=== PATIENT | male | born 1935 | race Caucasian/White ===

== ENCOUNTER 2018-09-17 19:59 | Inpatient (IN) ==
[2018-09-17] MEDS ORDERED: HYDROmorphone 2 MG/ML VIAL IV ONE (20:30)
[2018-09-17] MEDS: ONDANSETRON 4 MG/2 ML VIAL IV PRN ×2 (20:44→23:40)
[2018-09-17] MEDS ORDERED: HYDROcodone/APAP 10/325MG TABLET PO PRN (23:23)
[2018-09-17] MEDS ORDERED: LEVOFLOXACIN 750 MG/150 ML BAG IV ONE (23:23)
[2018-09-17] MEDS ORDERED: PROMETHAZINE 25 MG/ML VIAL IV PRN (23:23)
[2018-09-17] MEDS ORDERED: HYDROcodone/APAP 5/325MG TABLET PO ONE (23:43)
[2018-09-17] MEDS ORDERED: LORazepam 2 MG/ML VIAL IV ONE (23:50)
[2018-09-18 03:41] LABS: Basophils # (Auto) 0 K/mcL (0.0-0.3); Basophils % (Auto) 0 % (0.0-2.0); Eosinophils # (Auto) 0 K/mcL (0.0-0.7); Eosinophils % (Auto) 0 % (0.0-7.0); Granulocytes % (Auto) 95.4 % (38.0-78.0); Lymphocytes # (Auto) 0.5 K/mcL (1.5-4.8); Lymphocytes % (Auto) 3.8 % (15.5-49.0); Mean Cell Volume 87.9 fL (80.0-100.0); Mean Corpuscular HGB Conc 32.6 g/dL (31.0-36.0); Mean Corpuscular Hemoglobin 28.7 pg (26.0-34.0); Monocytes # (Auto) 0.1 K/mcL (0.1-0.9); Monocytes % (Auto) 0.8 % (1.0-12.0); Platelet Count 241 K/mcL (140-440); RBC 4.67 M/mcL (4.50-5.90); Red Cell Distribution Width 14.7 % (11.5-14.5)
[2018-09-18] MEDS ORDERED: HYDROcodone/APAP 5/325MG TABLET PO PRN (03:41)
[2018-09-18] MEDS ORDERED: methylPREDNISolone SOD SUCC 125 MG/2 ML VIAL IV ONE (03:43)
[2018-09-18] MEDS ORDERED: 0.9 % SODIUM CHLORIDE 1,000 ML IV ONE (03:44)
[2018-09-18 03:56] LABS: ALT/SGPT 16 U/l (0-40); Albumin 4.4 gm/dL (3.2-5.2); Albumin/Globulin Ratio 1.8 (1.0-2.3); Alkaline Phosphatase 80 U/L (39-117); Blood Urea Nitrogen 26 mg/dl (8-23); C-Reactive Protein < 0.3 mg/dl (0.0-0.8)
--- NOTE | 2018-09-18 05:40 | Emergency Department Note ---
General Adult HPI - General Chief complaint: Back Pain/Injury Stated complaint: Back Pain Time Seen by Provider: 09/17/18 20:10 Source: patient Mode of arrival: wheelchair Limitations: no limitations - History of Present Illness HPI Narrative: The patient is an 83-year-old male who presents today after having a minimally invasive spinal decompression performed by Dr. Arevalo. Reportedly after the procedure he woke up and had intense left leg pain. This has progressed since the surgery. He went home and tried to take his pain medication but threw it up. Was unable to take 2 of his hydrocodone 7.5 around 6:00 but it wasn't controlling his pain which prompted him to come in. He is reporting that the left leg is having severe pain that feels like spasms. States that it greater than 10 out of 10 pain. He denies any loss of bowel or bladder function. - Related Data Home Medications Medication Instructions Recorded Confirmed multivitamin capsule 1 tab-cap PO QDAY 11/02/15 01/27/18 Naproxen (Pp) [Aleve (Pp)] 220 mg PO QDAY 03/05/16 01/27/18 Previous Rx's Medication Instructions Recorded aspirin 81 mg tablet,delayed 81 mg PO QDAY #90 tab 12/06/15 release alprazolam 2 mg tablet 2 mg PO ONCE #2 tab 11/05/17 atorvastatin 40 mg tablet 40 mg PO HS #90 tab 12/07/17 ramipril 5 mg capsule 5 mg PO QDAY #90 cap 18 nortriptyline 10 mg capsule 10 mg PO QHS #90 cap 01/18/18 acebutolol 200 mg capsule 200 mg PO QDAY 90 Days #90 cap 01/27/18 nitroglycerin 0.4 mg sublingual 0.4 mg SUBLINGUAL Q5-15MIN PRN #30 01/27/18 tablet tab pantoprazole 40 mg tablet,delayed 40 mg PO QAM #90 tab 01/27/18 release Allergies Allergy/AdvReac Type Severity Reaction Status Date / Time Sulfa (Sulfonamide Allergy Intermediate Hives Verified 01/27/18 09:31 Antibiotics) niacin Allergy Mild Flushing Verified 01/27/18 09:31 [From Niaspan Extended-Release] latex Allergy Unknown Unknown Verified 01/27/18 09:31 sulfasalazine AdvReac Mild Dizziness Verified 01/27/18 09:31 Review of Systems All systems ED: reviewed and negative except as stated. Past Medical History - Past Medical History Attestation: Yes: The following information was validated with the patient. Medical history: Reports: coronary artery disease, GERD, hyperlipidemia, hypertension, other (rinary tract infection. BPH with urinary obstruction. Iron deficiency anemia due to chronic blood loss.) Surgical history ED: Reports: angioplasty/stent, cataract, other (photo vaporization of prostate. Rotator cuff repair.lumbar back surgery.closed fracture of sternum. Closed fracture of tib-fib.) - Social History smoking status: Never smoker Physical Exam Limitations: no limitations General appearance: alert, in distress (appears uncomfortable) Head: atraumatic Eye: Present: normal appearance ENT: normal exam Neck: Present: normal inspection Chest: Present: normal inspection Respiratory: Present: normal lung sounds bilaterally Cardiovascular: Present: regular rate, normal rhythm, systolic murmur (2/6 left sternal border) Abdominal: Present: soft, normal bowel sounds Extremities: Present: normal inspection Foot/toe: Present: other (1+ pedal pulses bilaterally, patient able to flex and extend his left foot, straight leg test to aprox 80 degrees before describing back pain, can lift left leg off of table. has frequent short "shooting spasms " where the patient seems to have a shock like sensation upon movement of the left leg. ) Neurovascular/Tendon: Present: normal capillary refill Back: Present: normal inspection Neurological: Present: alert, oriented X3 Psychiatric: Present: normal affect, normal mood Skin: Present: warm, dry Course Course Narrative: Anticipate the surgeon who operated and he didn't have any suggestions and will be causing this issue. Proceeded with a CT lumbar spine to evaluate for abscess formation or a structural issue which could contribute to the acute severe left flank pain. CT scan came back showing multiple small foci of air in the subcutaneous tissues, spinal canal and surrounding soft tissue. No fracture or subluxation. Mildly hyperdense material in the renal pelvises bilaterally that could represent excreted contrast material from another procedure. This could represent blood products. I spoke to the surgeon who did the procedure today who felt that these were expected findings after discussion of procedure he had., Who will was not impressed by these findings. Recommended an MRI of the lumbar spine. This was ordered. While this workup is happening the patient on arrival came in with an oxygen level of 88-89% on room air. He is not coughing. Was put on 4 L nasal cannula to maintain oxygen level greater than 90. I did treat his pain with dose of Dilaudid. - Reevaluation(s) Reevaluation #1: Patient reevaluated after MRI of his lumbar spine. This returned showing chronic degenerative changes including "degenerative spondyloarthropathy, multilevel degenerative disc disease and multilevel central canal stenosis. There are annular bulges at multiple levels. Cannot exclude a small left foraminal L2-L3 disc extrusion." Patient did have some improvement of his pain with [place] 10 mg and this was repeated as it has been over 3 hours. He is starting to get more of a spasm type pains again in the left leg. Reevaluation #2: Chest x-ray ordered which I reviewed. Allergies: He could have an infiltrate in the right middle lobe. This was sent to the [facility] radiologist who felt that it was negative for any cardiopulmonary process. Blood work was obtained which did show an elevated white blood cell count of 13.4 the patient has a temperature of 100.1 Fahrenheit with Tylenol on board. Reevaluation #3: I did speak to the hospitalist who graciously agreed to accept this patient for his persistent hypoxia. He has received a dose of Levaquin here. Requiring 4 L of oxygen via nasal cannula. Vital Signs Temperature 96.9 F L 09/17/18 19:59 Pulse Rate 93 H 09/17/18 19:59 Respiratory Rate 18 09/17/18 19:59 Blood Pressure 154/124 09/17/18 19:59 Pulse Oximetry (%) 95 09/17/18 19:59 Temperature 99.9 F H 09/18/18 05:01 Pulse Rate 96 H 09/18/18 05:01 Respiratory Rate 16 09/18/18 05:01 Blood Pressure 99/68 09/18/18 05:01 Pulse Oximetry (%) 93 09/18/18 05:01 Medical Decision Making - [facility] Narrative Medical decision making narrative: Unfortunate gentleman with a postsurgical complication of unknown mechanism. He did receive 60 mg of IV Solu-Medrol to decrease any inflammation at the procedure site which could be causing some irritation or pressure on the nerve root exiting at that level. He does have pulses in his lower extremities. Hypoxic with a negative chest x-ray by on the verge of tachycardia and a fever. He did receive a dose of Levaquin for empiric treatment of community-acquired pneumonia. He'll be transferred to the hospitalist for further management and workup - Lab Data Lab results reviewed: Yes I reviewed the patient's lab results. Result diagrams: 09/18/18 01:00 09/18/18 01:00 Lab Results 09/17/18 09/18/18 09/18/18 Range/Units 23:45 01:00 01:00 WBC 13.4 H (4.5-11.0) K/mcL RBC 4.67 (4.50-5.90) M/mcL Hgb 13.4 L (13.5-16.5) g/dL Hct 41.1 (41.0-55.0) % POC Hct 41.0 (41.0-55.0) % MCV 87.9 (80.0-100.0) fL MCH 28.7 (26.0-34.0) pg MCHC 32.6 (31.0-36.0) g/dL RDW 14.7 H (11.5-14.5) % Plt Count 241 (140-440) K/mcL MPV 9.6 (7.4-10.4) fL Gran % 95.4 H (38.0-78.0) % Lymph % (Auto) 3.8 L (15.5-49.0) % Jerome % (Auto) 0.8 L (1.0-12.0) % Eos % (Auto) 0 (0.0-7.0) % Baso % (Auto) 0 (0.0-2.0) % Gran # 12.8 H (1.8-8.0) K/mcL Lymph # (Auto) 0.5 L (1.5-4.8) K/mcL Jerome # (Auto) 0.1 (0.1-0.9) K/mcL Eos # (Auto) 0 (0.0-0.7) K/mcL Baso # (Auto) 0 (0.0-0.3) K/mcL VBG Lactic Acid POC Sodium 140 (133-145) mmol/L Sodium 140 (133-145) mmol/L POC Potassium 4.3 (3.3-5.1) mmol/L Potassium 4.3 (3.3-5.1) mmol/L POC Chloride 100 (96-108) mmol/L Chloride 101 (96-108) mmol/L Carbon Dioxide 26 (22-30) mmol/L POC Total CO2 26 (22-30) mmol/L Anion Gap 13.0 (8-16) POC BUN 28 H (8-23) mg/dl BUN 26 H (8-23) mg/dl Creatinine 0.9 (0.7-1.2) mg/dl POC Creatinine 1.0 (0.7-1.2) mg/dl GFR Calculation 80 Glucose 148 H (70-105) mg/dL POC Glucose 159 H (70-105) mg/dL Calcium 9.0 (8.6-10.4) mg/dl POC WB Ioniz Calcium 1.16 (1.16-1.32) mmol/L Total Bilirubin 0.4 (0.0-1.0) mg/dL AST 21 (0-37) U/l ALT 16 (0-40) U/l Alkaline Phosphatase 80 (39-117) U/L C-Reactive Protein < 0.3 (0.0-0.8) mg/dl Total Protein 6.9 (5.9-8.4) gm/dL Albumin 4.4 (3.2-5.2) gm/dL Globulin 2.5 (2.2-3.7) gm/dL Albumin/Globulin Ratio 1.8 (1.0-2.3) 09/18/18 Range/Units 01:00 WBC (4.5-11.0) K/mcL RBC (4.50-5.90) M/mcL Hgb (13.5-16.5) g/dL Hct (41.0-55.0) % POC Hct (41.0-55.0) % MCV (80.0-100.0) fL MCH (26.0-34.0) pg MCHC (31.0-36.0) g/dL RDW (11.5-14.5) % Plt Count (140-440) K/mcL MPV (7.4-10.4) fL Gran % (38.0-78.0) % Lymph % (Auto) (15.5-49.0) % Jerome % (Auto) (1.0-12.0) % Eos % (Auto) (0.0-7.0) % Baso % (Auto) (0.0-2.0) % Gran # (1.8-8.0) K/mcL Lymph # (Auto) (1.5-4.8) K/mcL Jerome # (Auto) (0.1-0.9) K/mcL Eos # (Auto) (0.0-0.7) K/mcL Baso # (Auto) (0.0-0.3) K/mcL VBG Lactic Acid Cancelled POC Sodium (133-145) mmol/L Sodium (133-145) mmol/L POC Potassium (3.3-5.1) mmol/L Potassium (3.3-5.1) mmol/L POC Chloride (96-108) mmol/L Chloride (96-108) mmol/L Carbon Dioxide (22-30) mmol/L POC Total CO2 (22-30) mmol/L Anion Gap (8-16) POC BUN (8-23) mg/dl BUN (8-23) mg/dl Creatinine (0.7-1.2) mg/dl POC Creatinine (0.7-1.2) mg/dl GFR Calculation Glucose (70-105) mg/dL POC Glucose (70-105) mg/dL Calcium (8.6-10.4) mg/dl POC WB Ioniz Calcium (1.16-1.32) mmol/L Total Bilirubin (0.0-1.0) mg/dL AST (0-37) U/l ALT (0-40) U/l Alkaline Phosphatase (39-117) U/L C-Reactive Protein (0.0-0.8) mg/dl Total Protein (5.9-8.4) gm/dL Albumin (3.2-5.2) gm/dL Globulin (2.2-3.7) gm/dL Albumin/Globulin Ratio (1.0-2.3) Disposition Pt seen by [facility]/PA only: No Clinical Impression: Hypoxia, Post surgical complication Disposition: Xfer As Inpt ([facility]) Referrals: Ricardo Ochoa MD [Primary Care Provider] -
[2018-09-18] MEDS ORDERED: oxyCODONE HCL 5 MG TABLET PO PRN (07:06)
[2018-09-18] MEDS ORDERED: NALOXONE HCL 0.4 MG/ML VIAL IV PRN (07:06)
[2018-09-18] MEDS ORDERED: ALBUTEROL SULFATE 2.5 MG/3 ML NEBULIZER NEB PRN (07:06)
[2018-09-18] MEDS ORDERED: ONDANSETRON 4 MG/2 ML VIAL IV PRN (07:06)
--- NOTE | 2018-09-18 07:39 | Internal Med History&Physical ---
Medical - H&P: HPI Patient information: Note initiated : 09/18/18 at 7:30 am Service Date, if different from initiated Date: [] Patient: Ricardo Romano a 83 y/o M admitted on 09/18/18 for Back Pain. Chief Complaint: [] History of present illness: Mr. Romano is a 83 year old M wit h/o spinal stenosis, chr back pain, presents to the ER last night for evaluation fo worsening pain in the left leg. The patient notes that he has had chr pain in the lower back, with pain radiating down both legs, right > left, he has some hyperaesthesia in the left leg too, which has been bothering him for the last 3 months? the patient notes that he has been seen by Dr Ruvalcaba and then sent to the pain clinic, advised injections, which he took for 3 months, with no major relief, eventual decided to go for spinal procedure, done by Dr Fontaine yesterday. The patient notes after the procedure the pain in the right leg is much better, but the pain in the left leg got significantly worse, pain is severe, making it difficult for the patient to ambulate, patient rates the pain 10/10, sharp, waxing and waning in intensity, radiates down the leg from the hip to the lateral ankle. The patient notes that touching the skin around the ankle region also causes significant pain. He denies any other acute complaints, no fever,chills, has chr cough, no headaches, no nausea/vomiting or bowel bladder complaints. Given his inability to ambulate and significantly worsening pain, he was brought to the ER for further evaluation. He underwent a CT of the lumbar spine which showed significant gas around the spinal cord, and paraspinal muscles, which according to the neurosurgeon and dr Fontaine is related to the procedure. Dr Fontaine noted that the pain is not due to the procedure he did? ( as per ER provider). NO surgican management needed. MRI shows severe degeneration, possible spinal root compression on left side l2-3, The patient also had hypoxia and low grade temp in the ER, midly elevated wbc count, he does not use oxygen at home and was needing oxygen after the use of opiate pain medications. Given concern for possible pna, intractable pain, and increased oxygen needs patient is being admitted to the hospital for further management. 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) History of endoscopy (Chronic 01/08/16) Iron deficiency anemia due to chronic blood loss (Resolved) Essential hypertension (Chronic) Dyslipidemia (Chronic) Coronary atherosclerosis of [place] coronary artery (Chronic 10/17/13) History of colonic polyps (Chronic) Chronic ischemic heart disease (Chronic) Benign localized prostatic hyperplasia without lower urinary tract symptoms ( LUTS) (Chronic) 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) Closed fracture of sternum (Resolved) Closed fracture of tibia and fibula (Resolved) Hypotension (Resolved 09/04/14) Rib contusion (Resolved) Surgical history: Past Surgical History (Last Updated 01/27/18 @ 09:41 by Ricardo Ochoa MD) History of esophagogastroduodenoscopy (Chronic 12/15/15) History of coronary artery stent placement (Chronic) Hx of repair of rotator cuff (Chronic) Hx of lumbosacral spine surgery (Chronic) History of photovaporization of prostate (Acute) History of colonoscopy (Chronic 12/26/15) Hx of cataract surgery (Resolved) Previous back surgery (Resolved) Family history: reviewed and not pertinent Medical - H&P: Meds Home Medications Medication Instructions Recorded Confirmed Type multivitamin capsule 1 tab-cap PO QDAY 11/02/15 09/18/18 History aspirin 81 mg tablet,delayed 81 mg PO QDAY #90 tab 12/06/15 09/18/18 Rx release Naproxen (Pp) [Aleve (Pp)] 220 mg PO QDAY 03/05/16 09/18/18 History alprazolam 2 mg tablet 2 mg PO ONCE #2 tab 11/05/17 09/18/18 Rx atorvastatin 40 mg tablet 40 mg PO HS #90 tab 12/07/17 09/18/18 Rx nortriptyline 10 mg capsule 10 mg PO QHS #90 cap 01/18/18 09/18/18 Rx acebutolol 200 mg capsule 200 mg PO QDAY 90 Days #90 cap 01/27/18 09/18/18 Rx nitroglycerin 0.4 mg sublingual 0.4 mg SUBLINGUAL Q5-15MIN PRN #30 01/27/18 Rx tablet tab pantoprazole 40 mg tablet,delayed 40 mg PO QAM #90 tab 01/27/18 09/18/18 Rx release Ramipril [Altace] 5 mg PO HS 09/18/18 09/18/18 History Allergies Allergy/AdvReac Type Severity Reaction Status Date / Time latex Allergy Intermediate Difficulty Verified 09/18/18 07:32 Breathing Sulfa (Sulfonamide Allergy Intermediate Hives Verified 09/18/18 06:23 Antibiotics) niacin Allergy Mild Flushing Verified 09/18/18 06:23 [From Niaspan Extended-Release] sulfasalazine AdvReac Mild Dizziness Verified 09/18/18 07:32 Medical - H&P: Exam - Constitutional Vitals: Temp Pulse Resp BP Pulse Ox 99.9 F H 96 H 16 99/68 92 09/18/18 05:01 09/18/18 05:01 09/18/18 05:01 09/18/18 05:01 09/18/18 06:47 Exam: GENERAL: The patient is a well-developed, well-nourished in no apparent distress. Is alert and oriented x3. VITAL SIGNS: Reviewed and as noted elsewhere. HEENT: Head is normocephalic and atraumatic. Extraocular muscles are intact. Pupils are equal, round, and reactive to light. Nares appeared normal. Mouth appears any without lesions. Mucous membranes are moist. NECK: Normal to inspection, Supple, No lymphadenopathy or thyromegaly. LUNGS: Air entry equal on both sides, no wheezing, crackles or rhonchi noted. No accessory muscles of respiration HEART: Regular rate and rhythm normal, S1 and S2 heard, no Gallop, S3 or Rub Noted, No Gross murmur heard. ABDOMEN: Soft, nontender, and nondistended. Positive bowel sounds. No hepatosplenomegaly was noted. EXTREMITIES: No cyanosis, clubbing, rash, lesions or edema. very mild swelling of the left foot, good pulses DP PT bilaterally, warm to touch. NEUROLOGIC: Cranial nerves II through XII are grossly intact. Motor and Sensory System Grossly Intact, hyperasthesia in the left ankle regin, around distribution of L3-4 nerve. no neurolgoical deficit noted. PSYCHIATRIC: Normal affect, Normal Mood. Appropriate Behavior. SKIN: No ulceration or wounds noted, No jaundice, No rash noted. Medical - H&P: Reslt - Labs CBC & Chem 7: 09/18/18 01:00 09/18/18 01:00 Labs: Short CBC 09/18/18 Range/Units 01:00 WBC 13.4 H (4.5-11.0) K/mcL Hgb 13.4 L (13.5-16.5) g/dL Hct 41.1 (41.0-55.0) % Plt Count 241 (140-440) K/mcL BMP 09/18/18 01:00 Sodium 140 Potassium 4.3 Chloride 101 Carbon Dioxide 26 BUN 26 H Creatinine 0.9 Glucose 148 H Calcium 9.0 Cardiac Enzymes 09/18/18 Range/Units 01:00 Total Creatine Kinase 105 (24-195) IU/L Liver Function 09/18/18 Range/Units 01:00 Total Bilirubin 0.4 (0.0-1.0) mg/dL AST 21 (0-37) U/l ALT 16 (0-40) U/l Alkaline Phosphatase 80 (39-117) U/L Albumin 4.4 (3.2-5.2) gm/dL Medical - H&P: A/P - Narrative A/P Narrative: A/P Acute hypoxic respiratory failure- due to use of opiates for pain meds, keep osat > 90, supplemental oxygen Possible pna- given elevated wbc count, hypoxia, its possble he may have developed a mild aspiration pneumonitis, periprocedure, levofloxacin for now, Left leg pain- Due to Recent procedure, likely some direct trauma to the nerve, will review case with spine surgery if possible, have them review the images, the L2,3 nerve compression seen on MRI could also be causing this. PO pain mes , tylenol and toradol for now. check esr, crp, kenneth screen, c3, c4, vit b12 to r/ o other causes of neuropathy. CAD- continue home cardiac meds DVT hep sq Diet regular Full code. Social History - Social History leisure activities: hunting, fishing, other - Exercise physical activity: walking - Tobacco smoking status: Never smoker - Alcohol alcohol intake frequency: does not drink - Substance use substance use type: does not use
[2018-09-18] MEDS: LACTATED RINGERS 1,000 ML IV SCH ×2 (07:52→21:14)
[2018-09-18] MEDS: KETOROLAC 30 MG/ML VIAL IV PRN ×2 (07:53→17:06)
[2018-09-18] MEDS: ACETAMINOPHEN 325 MG TABLET PO SCH ×3 (07:54→19:19)
[2018-09-18 08:21] LABS: ALT/SGPT 15 U/l (0-40); Albumin 3.7 gm/dL (3.2-5.2); Albumin/Globulin Ratio 1.3 (1.0-2.3); Alkaline Phosphatase 68 U/L (39-117); Bilirubin,Direct < 0.2 mg/dL (0.0-0.3); Blood Urea Nitrogen 32 mg/dl (8-23); C-Reactive Protein 0.3 mg/dl (0.0-0.8); Gamma Glutamyl Transpeptidase 14 U/L (8-61); Uric Acid 4.5 mg/dL (2.5-8.0)
[2018-09-18 08:22] LABS: Complement C3 121.2 mg/dl (90-180)
[2018-09-18 08:28] LABS: Procalcitonin < 0.05 ng/mL (<0.10)
[2018-09-18 08:33] LABS: Vitamin B12 366.5 pg/ml (232-1245)
[2018-09-18 08:42] LABS: Erythrocyte Sedimentation Rate 10 mm/hr (0-15)
[2018-09-18 08:45] LABS: Basophils # (Auto) 0 K/mcL (0.0-0.3); Basophils % (Auto) 0 % (0.0-2.0); Eosinophils # (Auto) 0 K/mcL (0.0-0.7); Eosinophils % (Auto) 0 % (0.0-7.0); Granulocytes % (Auto) 95.1 % (38.0-78.0); Lymphocytes # (Auto) 0.6 K/mcL (1.5-4.8); Lymphocytes % (Auto) 3.5 % (15.5-49.0); Mean Cell Volume 87.5 fL (80.0-100.0); Mean Corpuscular HGB Conc 33.2 g/dL (31.0-36.0); Monocytes # (Auto) 0.2 K/mcL (0.1-0.9); Monocytes % (Auto) 1.4 % (1.0-12.0); Platelet Count 219 K/mcL (140-440); RBC 4.25 M/mcL (4.50-5.90); Red Cell Distribution Width 14.8 % (11.5-14.5)
--- NOTE | 2018-09-18 09:20 | Cat Scan Report ---
CLINICAL INFORMATION: Worsening low back pain radiating to the left leg, status post minimally invasive disc decompression at L3-4 done earlier today. COMPARISON: Lumbar MRI on 11/05/17. TECHNIQUE: The spine was imaged without contrast from T10-11 to the lower sacrum. Sagittal and coronal reformats were created. Radiation exposure was limited using dose reduction technology. FINDINGS: There are numerous bubbles of air in the soft tissues in the posterior aspect of the spine from T10-11 at L5-S1. Much of the air is in the fascial planes between the paraspinal musculature. Some of their is also in the epidural space starting from T10-11 to L5-S1. No intradural gas is present. There is no evidence of a paraspinal hematoma or abscess. There are advanced degenerative changes in the spine. At L5-S1 the disc is severely narrowed and degenerated. There is an ossified midline herniated disc fragment. This is not causing compression of the thecal sac. This is unchanged from the prior MRI. At L4-5 the disc spaces moderate to severely narrowed and degenerated. There is a large bulge and arthritis in the facets resulting in moderate spinal canal stenosis and moderate stenosis of both neural foramina. At L3-4 disc is mildly narrowed. There is a medium-sized broad-based bulge and arthritis in the facets. There is also ossification of the ligamentum flavum. This is causing moderately severe spinal canal stenosis. There is severe stenosis the right moderate stenosis left side foramina. L2-3 disc is mildly narrowed and there is a medium-sized posterior bulge. Severe arthritis is present in the facets. There is hypertrophy and ossification of the ligamentum flavum. This is causing severe spinal canal stenosis. There is moderately severe stenosis of both neural foramina. At L1-2 small posterior bulge and moderate arthritis in the facets causing mild spinal canal stenosis. There is partial opacification of the collecting systems in both kidneys as well as urinary bladder. Did the patient received intravenous contrast earlier today? There is a low-attenuation solid structure posteriorly in the bladder which measures approximately 3 x 4 cm. Much of the bladder and the mass are outside of the field of view. IMPRESSION: Severe spinal canal stenosis at L2-3 with moderately severe central canal stenosis at L3-4 and moderate central canal stenosis at L4-5 due to bulging discs and arthritis. Similar findings were seen on the prior lumbar MRI in 2017. Air in the epidural space throughout the lumbar spine following the preceding surgical procedure No evidence of paraspinal hematoma or abscess Mass or organized hematoma posteriorly in the midline of the bladder. Further evaluation is recommended. Interpreted and Authenticated by: Negro Russell 09/18/18
--- NOTE | 2018-09-18 09:27 | XRay Report ---
HISTORY: Hypoxia FINDINGS: The lungs are clear. The heart, mediastinum, joie and pleura are normal. IMPRESSION: Normal chest. Interpreted and Authenticated by: Negro Russell 09/18/18
[2018-09-18] MEDS: HEPARIN 5,000 UNIT/ML VIAL SQ SCH ×2 (09:47→21:20)
[2018-09-18] MEDS: LIDOCAINE 5% OINT TUBE 35GM TOPICAL PRN ×2 (12:00→21:21)
[2018-09-18] MEDS: PANTOPRAZOLE 40 MG TABLET PO SCH (13:24)
[2018-09-18] MEDS: PREGABALIN 150 MG CAPSULE PO SCH ×2 (14:05→21:21)
[2018-09-18] MEDS: LEVOFLOXACIN 750 MG/150 ML BAG IV SCH (14:07)
[2018-09-18] MEDS: 0.9 % SODIUM CHLORIDE 10 ML SYRINGE IV SCH ×2 (14:08→21:21)
[2018-09-18] MEDS ORDERED: PREGABALIN 75 MG CAPSULE PO SCH (15:00)
[2018-09-18] MEDS ORDERED: ACETAMINOPHEN 500 MG TABLET PO ONE (19:24)
[2018-09-18] MEDS ORDERED: LISINOPRIL 10 MG TABLET PO SCH (21:00)
[2018-09-18] MEDS ORDERED: ATORVASTATIN 20 MG TABLET PO SCH (21:00)
[2018-09-18] MEDS ORDERED: NORTRIPTYLINE 10 MG CAPSULE PO SCH (21:00)
[2018-09-19] MEDS: ACETAMINOPHEN 325 MG TABLET PO SCH ×3 (00:59→13:05)
[2018-09-19] MEDS ORDERED: ACETAMINOPHEN 500 MG TABLET PO ONE ×3 (01:04→12:56)
[2018-09-19] MEDS: 0.9 % SODIUM CHLORIDE 10 ML SYRINGE IV SCH (04:55)
[2018-09-19] MEDS: PANTOPRAZOLE 40 MG TABLET PO SCH (07:22)
[2018-09-19] MEDS: LACTATED RINGERS 1,000 ML IV SCH (07:27)
[2018-09-19] MEDS ORDERED: PANTOPRAZOLE 40 MG TABLET PO SCH (07:30)
[2018-09-19] MEDS ORDERED: MULTIVIT,THER IRON,CA,FA & MIN 1 TABLET PO SCH (09:00)
[2018-09-19] MEDS ORDERED: ASPIRIN 81 MG TAB.CHEW PO SCH (09:00)
[2018-09-19] MEDS: LEVOFLOXACIN 750 MG/150 ML BAG IV SCH (10:29)
[2018-09-19] MEDS: PREGABALIN 150 MG CAPSULE PO SCH (10:30)
[2018-09-19] MEDS: HEPARIN 5,000 UNIT/ML VIAL SQ SCH (10:31)
--- NOTE | 2018-09-19 12:09 | Discharge Summary ---
Medical - DS: Prov Patient information: Note initiated : 09/19/18 at 12:05 pm Service Date, if different from initiated Date: [] Patient: Ricardo Romano 83 y/o M admitted on 09/18/18 for Back Pain. Chief Complaint: [] Date of admission: 09/18/18 06:59 Discharge date: 09/19/18 Primary care physician: Ricardo Ochoa Consults: 09/18/18 Consult to Physician [CONS] Stat Comment: Consulting Provider: Constance Fermin Reason For Exam: Physician to Consult Discharging clinician: Constance Fermin Medical - DS: Meds - Discharge Medications Prescriptions: Levofloxacin [Levaquin] 500 mg PO DAILY #3 tab Active and Home Medications: Home Medications multivitamin capsule 1 tab-cap PO QDAY 11/02/15 [History Confirmed 09/18/18 Last Taken 09/16/18] aspirin 81 mg tablet,delayed release 81 mg PO QDAY #90 tab 12/06/15 [Rx Confirmed 09/18/18 Last Taken 09/05/18] Naproxen (Pp) [Aleve (Pp)] 220 mg PO QDAY 03/05/16 [History Confirmed 09/18/18 Last Taken 09/16/18] alprazolam 2 mg tablet 2 mg PO ONCE #2 tab 11/05/17 [Rx Confirmed 09/18/18 Last Taken 09/16/18 21:00] atorvastatin 40 mg tablet 40 mg PO HS #90 tab 12/07/17 [Rx Confirmed 09/18/18 Last Taken 09/17/18] nortriptyline 10 mg capsule 10 mg PO QHS #90 cap 01/18/18 [Rx Confirmed Last Taken 09/15/18 21:00] acebutolol 200 mg capsule 200 mg PO QDAY 90 Days #90 cap 01/27/18 [Rx Confirmed 09/18/18 Last Taken 09/16/18 17:00] nitroglycerin 0.4 mg sublingual tablet 0.4 mg SUBLINGUAL Q5-15MIN PRN #30 tab [Rx Confirmed 09/18/18 Last Taken 08/30/12] pantoprazole 40 mg tablet,delayed release 40 mg PO QAM #90 tab 01/27/18 [Rx Confirmed 09/18/18 Last Taken 09/14/18 21:00] Ramipril [Altace] 5 mg PO HS 09/18/18 [History Confirmed 09/18/18 Last Taken 17:00] Medical - DS: Hosp Hospital course: Mr. Romano is a 83 year old M wit h/o spinal stenosis, chr back pain, presents to the ER last night for evaluation fo worsening pain in the left leg. The patient notes that he has had chr pain in the lower back, with pain radiating down both legs, right > left, he has some hyperaesthesia in the left leg too, which has been bothering him for the last 3 months? the patient notes that he has been seen by Dr Ruvalcaba and then sent to the pain clinic, advised injections, which he took for 3 months, with no major relief, eventual decided to go for spinal procedure, done by Dr Fontaine yesterday. The patient notes after the procedure the pain in the right leg is much better, but the pain in the left leg got significantly worse, pain is severe, making it difficult for the patient to ambulate, patient rates the pain 10/10, sharp, waxing and waning in intensity, radiates down the leg from the hip to the lateral ankle. The patient notes that touching the skin around the ankle region also causes significant pain. He denies any other acute complaints, no fever,chills, has chr cough, no headaches, no nausea/vomiting or bowel bladder complaints. Given his inability to ambulate and significantly worsening pain, he was brought to the ER for further evaluation. He underwent a CT of the lumbar spine which showed significant gas around the spinal cord, and paraspinal muscles, which according to the neurosurgeon and dr Fontaine is related to the procedure. Dr Fontaine noted that the pain is not due to the procedure he did? ( as per ER provider). NO surgican management needed. MRI shows severe degeneration, possible spinal root compression on left side l2-3, The patient also had hypoxia and low grade temp in the ER, midly elevated wbc count, he does not use oxygen at home and was needing oxygen after the use of opiate pain medications. Given concern for possible pna, intractable pain, and increased oxygen needs patient is being admitted to the hospital for further management. The patient was seen by Dr Fontaine, Dr Ruvalcaba, they reviewed the plan of care with the patient, no change in management at this time, they reviewed the mri findings, no operative interventino. Patient reports significant improvement in the pain, doing much better, He is off oxygen, given some concern for possible infection, will treat with oral levofloxacin for total of 5 days, 3 more days after discharge. The rest of the stay in the hospital was unremarkable, no change in chr home medication list. Discharge diagnosis: left leg pain - Time Spent with Patient Total time spent providing and/or coordinating discharge services: Less than 30 minutes Medical - DS: Exam - Constitutional Vitals: Vital Signs Temp Pulse Resp BP Pulse Ox 09/19/18 07:49 20 94 09/19/18 07:08 97.5 F 20 158/88 94 09/19/18 04:40 93 09/19/18 04:00 98.8 F 79 20 139/84 93 09/18/18 23:30 98.6 F 83 20 137/77 93 09/18/18 18:15 98.8 F 88 20 139/79 92 09/18/18 15:55 99.1 F H 20 112/69 92 Intake and Output 09/18/18 09/19/18 09/19/18 21:59 05:59 13:59 Intake Total 1900 / 1900 0 / 0 858 / 858 Output Total 725 / 725 750 / 750 1250 / 1250 Balance 1175 / 1175 -750 / -750 -392 / -392 Intake: IV 1150 / 1150 858 / 858 Lactated Ringers 1,000 ml @ 84 1000 / 1000 858 / 858 mls/hr IV .[id number] ON LICENSE OF [facility] Rx#: [id number] Oral 750 / 750 0 / 0 Output: Void Amount 725 / 725 750 / 750 1250 / 1250 # of times incontinent of urine 0 / 0 Other: Meal Dinner Percent of Meal Consumed 50% Feeding Ability Independent Urine Appearance Clear Clear Clear Urine Color Bright Yellow Pale Pale Urine Odor Normal Normal # Voids 1 Weight 183 lb Additional comments: Constitutional; Afebrile, cooperative, alert, not in distress. Eyes- No icterus, , No periorbital swelling Ears- Ext ear normal, hearing normal to conversation. Neck- Midline trachea, supple Respiratory system: Air Entry equal on both sides, No crackles or wheezing, no rhonchi. CVS- Rate rhythm regular, S1,S2 heard, no gallop, no rub. Abdomen- Soft nontender abdomen, no organomegaly, no tenderness, no guarding or rigidity, [employer]ER- AOOx3, moving all extremities, no gross focal deficit noted. Medical - DS: A/P - Patient/Caregiver Discharge Instructions Activity: increase activity as tolerated Diet: Regular Diet Additional Instructions: Take levofloxacin for 3 more days Follow up with Dr Fontaine as outpatient next week for managed of your chr pain. Go to the ER if worsening symptoms, chest pain fever or any other acute concerns. I have not made changes to any of your chronic home medications please take them as prescribed by her previous provider. - Follow up Plan Follow up with: Ricardo Ochoa MD [Primary Care Provider] - Disposition: Home, Self-Care Prognosis: Fair Rehab Potential: Fair I certify that the patient requires SNF services: No Overall status at discharge: patient is progressing back to baseline Medical - DS: Qual - VTE Deep Vein Thrombosis/Pulmonary Embolism Present on Admission: No
--- NOTE | 2018-09-21 08:22 | Consultation ---
DATE OF CONSULTATION: 09/18/2018 IDENTIFICATION: This is an 83-year-old male. CHIEF COMPLAINT: Left lower extremity radiculitis. HISTORY: This is a gentleman who I had seen in clinic with lumbar stenosis and claudication. He was referred [facility]. He underwent several epidural steroid injections with good but very temporary relief. He did have significant central stenosis that was felt to be amenable to an endoscopic decompression. The endoscopic decompression was performed by Dr. Fontaine, and the patient and this procedure was uneventful. The patient, however, has had some increased left lower extremity nerve pain which seems to roughly follow an L4 dermatome. His symptoms were such that he presented to the emergency room and was admitted for pain control. I am now consulted by Dr. Fermin for further evaluation and management. On presentation, he is resting comfortably in the room. I have spoken with Dr. Fontaine who meets me at the patient's bedside. The patient has not been on his Lyrica. He does get some episodic waves of pain which caused the left lower extremity to retract and somewhat drop, and he does have dysesthetic hypersensitivity in roughly an L4 dermatomes. He does not have any complaints of bowel and bladder dysfunction. His right lower extremity seems actually improved. PAST MEDICAL/SURGICAL HISTORY: Significant for cardiovascular disease, hypertension and is noted on the admission H and P performed by Dr. Fermin. Medications, allergies and past surgical are reviewed. Really the only pertinent is the recent lumbar decompression. PHYSICAL EXAMINATION: He is in bed. He does have hypersensitivity along an L4 dermatome. He does not have any real marked neurologic deficits. He is vascularly intact. There is no swelling or deformity of either lower extremity. His MRI scan does demonstrate evidence of a recent decompression. There is some motion artifact. He does have some residual disc material in the lateral recess on the left at L3-L4 which probably is the explanation for his symptoms. IMPRESSION: Recent surgical decompression. This was an endoscopic procedure, now with increased left lower extremity radiculitis. The patient has no marked neurologic deficit. Certainly does have hypersensitivity and maybe even some vague weakness of tibialis anterior at -5/5. It is hard to sort this out from pain inhibition. He does not have any cauda equinus syndrome or bowel or bladder complaints. His canal on MRI scan certainly does not look any worse. In fact, I think overall the central canal appears to be improved. He does have some residual lateral recess stenosis which probably is the explanation for his symptoms. RECOMMENDATIONS: At this point, I really think there is no emergent need for additional decompression. He has inflammation surrounding this left-sided L4 root which very likely may resolve spontaneously. He will be started back on his Lyrica which he has not been taking in the hospital. This may also help substantially. If he deteriorates, we can certainly reconsider. KEVEN:zoltan Job ID: [id number] Doc ID: [id number] Oliver Ruvalcaba MD
== END 2018-09-19 13:23 | disposition home or self-care (01) | DRG 551 ==
LOC: ED 19:59 → MEDSUR 09-18 06:59
PROVIDERS: ADMIT Internal Medicine; ATTEND Internal Medicine
CPT/HCPCS: 80047; 84145; 85014; 99238; J1170; J1644; J1885; J1956; J2060; J2405; J2550; J2930; J7030; J7120

== ENCOUNTER 2020-12-10 18:18 | Inpatient (IN) ==
[2020-12-10] MEDS ORDERED: IOPAMIDOL 100 ML BOTTLE IV ONE (18:19)
[2020-12-10] MEDS ORDERED: LACTATED RINGERS 1,000 ML IV ONE ×3 (18:30→23:04)
[2020-12-10] MEDS ORDERED: MECLIZINE 25 MG TABLET PO ONE (18:34)
--- NOTE | 2020-12-10 19:16 | Emergency Department Note ---
Dizziness HPI General Chief Complaint: Dizziness Stated Complaint: DIZZINESS Time Seen by Provider: 12/10/20 18:29 Source: patient and RN notes reviewed Mode of arrival: ambulatory Limitations: no limitations History of Present Illness HPI Narrative: Narrative: This patient had an episode of vertigo and nausea and while getting into his truck fell slipped and hit his face on the truck. Did not lose consciousness and has no neck pain. He does have a small abrasion to the right eyebrow area. He does take a baby aspirin but is not taking any other blood thinner. Surprisingly this patient had a temperature of 102. He has not had a cough sore throat urinary symptoms or other signs of infection. Does not feel short of breath. He has had vertigo in the past and it sounds like he has gotten meclizine for it in the past. MD complaint: dizziness Onset (ago): minute(s) Timing: sudden onset Description: "room spinning" History of similar episodes: Yes History of trauma: Yes Severity: moderate Improves with: rest Worsens with: nothing Associated symptoms: Reports nausea Related Data Home Medications Medication Instructions Recorded Confirmed multivitamin 1 tab-cap PO QDAY 11/02/15 08/29/20 naproxen sodium 220 mg PO QDAY 03/05/16 08/29/20 amlodipine 10 mg PO QDAY 12/11/20 12/11/20 aspirin 81 mg PO QPM 12/11/20 12/11/20 atorvastatin 40 mg PO HS 12/11/20 12/11/20 atorvastatin 80 mg PO QDAY 12/11/20 12/11/20 carvedilol 25 mg PO BID 12/11/20 12/11/20 finasteride [Proscar] 5 mg PO Q2-3DAYS 12/11/20 12/11/20 losartan 100 mg PO QDAY 12/11/20 12/11/20 pregabalin [Lyrica] 150 mg PO QHS 12/11/20 12/11/20 Previous Rx's Medication Instructions Recorded nortriptyline 10 mg capsule 10 mg PO QHS #90 cap 01/18/18 nitroglycerin 0.4 mg sublingual 0.4 mg SUBLINGUAL Q5-15MIN PRN #30 01/27/18 tablet tab pantoprazole 40 mg tablet,delayed 40 mg PO QAM #90 tab 01/27/18 release ondansetron 4 mg PO Q6H PRN #14 tab 11/06/20 Allergies Allergy/AdvReac Type Severity Reaction Status Date / Time latex Allergy Severe Difficulty Verified 12/11/20 07:01 Breathing Sulfa (Sulfonamide Allergy Mild Hives Verified 12/11/20 07:01 Antibiotics) niacin AdvReac Mild Flushing Verified 12/11/20 07:01 [From Niaspan Extended-Release] sulfasalazine AdvReac Mild Dizziness Verified 12/10/20 18:23 Review of Systems ROS ROS Narrative: Narrative: All systems ED: reviewed and negative except as stated. [facility] Narrative Patient History Narrative: Narrative: Medical/Surgical/Family History All Active Problems (Updated 12/11/20 @ 07:53 by Edwin Cuellar MD) Nausea and vomiting (Acute) Sepsis (Acute) History of myocardial infarction (Acute) Carpal tunnel syndrome on right (Chronic) Left shoulder pain (Chronic) Radiculopathy, lumbar region (Chronic) Spinal stenosis, lumbar region with neurogenic claudication (Chronic) Chronic pain (Chronic) Low back pain (Chronic) Radiculopathy, lumbosacral region (Chronic) Pain in left hip (Chronic) Bursitis of left shoulder (Chronic) Bursitis of right shoulder (Chronic) Pain of right hip joint (Chronic) Hypoxia (Acute) Post surgical complication (Acute) Spinal stenosis at L4-L5 level (Chronic) Lumbago without sciatica (Chronic) 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) Hx of repair of rotator cuff (Chronic) Essential hypertension (Chronic) Dyslipidemia (Chronic) 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) History of colonic polyps (Chronic) Chronic ischemic heart disease (Chronic) Benign localized prostatic hyperplasia without lower urinary tract symptoms (LUTS) (Chronic) 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) Medical History (Updated 12/11/20 @ 07:53 by Edwin Cuellar MD) 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) Dr Morrison Benign localized prostatic hyperplasia without lower urinary tract symptoms (LUTS) (Chronic) BPH with urinary obstruction (Chronic) Bursitis of left shoulder (Chronic) Bursitis of right shoulder (Chronic) Carpal tunnel syndrome on right (Chronic) Chronic ischemic heart disease (Chronic) Chronic pain (Chronic) Closed fracture of sternum (Resolved) 2007 Closed fracture of tibia and fibula (Resolved) 2007 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) 09/04/14 Dr Morrison - repeat stenting procedure Dyslipidemia (Chronic) Essential hypertension (Chronic) Hematuria (Inactive) History of colonic polyps (Chronic) History of myocardial infarction (Acute) X2 Hypotension (Resolved 09/04/14) Dr Morrison Iron deficiency anemia due to chronic blood loss (Resolved) Left shoulder pain (Chronic) Low back pain (Chronic) Nonulcer dyspepsia (Chronic) Pain in left hip (Chronic) Pain of right hip joint (Chronic) Radiculopathy, lumbar region (Chronic) Radiculopathy, lumbosacral region (Chronic) Rib contusion (Resolved) 2007 Spinal stenosis, lumbar region with neurogenic claudication (Chronic) Urinary tract infection (Resolved) Urinary tract infection (Inactive) Surgical History (Updated 11/06/20 @ 13:42 by Tyler Alvarez DO) History of colonoscopy (Chronic 12/26/15) History of coronary artery stent placement (Inactive) 1996, repeat 2013 History of endoscopy (Inactive 01/08/16) Caspule endoscopy History of esophagogastroduodenoscopy (Inactive 12/15/15) History of photovaporization of prostate (Acute) History of surgery (Acute) Hip Joint Injection Lt. w/o sed 06/18/202006/18 Hip Joint Injection Rt. w/o sed 06/08/202011/16 Hip Joint Injection Lt. w/o sed 11/04/201809/16 MILD L2-3, L3-4 w/ sed 09/17/1803/17 TF FARIDA #3 Right L4-5 w/o sed 03/19/201801/17 LESI #2 L3-4 w/o sed 01/19/1812/17 LESI #1 L3-4 w/o sed 12/23/2017 Hx of cataract surgery (Resolved) 2004 Hx of lumbosacral spine surgery (Inactive) and epidural injections post op Hx of repair of rotator cuff (Chronic) Previous back surgery (Resolved) 1988 Family History Unknown Cardiac disease Social History Smoking Status: Never smoker Alcohol Intake Frequency: does not drink Substance Use: does not use Exam Narrative Narrative: Narrative: General Limitations: no limitations Head Head: Present other (Small abrasion to the right eyebrow area that does not require sutures) Eye Eye: Present normal appearance, PERRL and EOMI; Absent scleral icterus, conjunctival injection and nystagmus ENT ENT: Present normal exam, normal oropharynx and mucous membranes moist Neck Neck: Present normal inspection and full ROM; Absent tenderness Chest Chest: Present normal inspection and symmetric chest wall rise Respiratory Respiratory: Present normal lung sounds bilaterally; Absent respiratory distress, rales/crackles and wheezes Cardiovascular Cardiovascular: Present regular rate, normal rhythm and normal heart sounds Adbominal Abdominal: Present soft; Absent distention and tenderness Extremities Extremities: Present normal inspection and full ROM; Absent pedal edema and pretibial edema Neurological Neurological: Present alert Psychiatric Psychiatric: Present normal affect Skin Skin: Present warm (WNL) and dry; Absent diaphoresis Course Vital Signs Vital signs: Vital Signs Temperature 102.9 F H 12/10/20 18:19 Pulse Rate 104 H 12/10/20 18:19 Respiratory Rate 16 12/10/20 18:19 Blood Pressure 150/86 12/10/20 18:19 Pulse Oximetry (%) 95 12/10/20 18:19 Temperature 97.1 F 12/11/20 04:01 Pulse Rate 111 H 12/11/20 06:02 Respiratory Rate 33 H 12/11/20 06:02 Blood Pressure 150/89 12/11/20 06:02 Pulse Oximetry (%) 94 12/11/20 06:02 [facility] MDM Narrative Medical decision making narrative: Narrative: This patient had a significant fever that was unexplained. We did blood cultures and hydrated the patient and treated him empirically with Rocephin and Zithromax and Zosyn. After 2 L of fluid his blood pressure dropped into the 80s. After third liter fluid is back up to 96 systolic. I discussed the case with Dr. Tidwell we will admit the patient to the hospital to rule out sepsis. The patient was treated with meclizine and had no further vertigo while in the emergency room. Lab Data Lab results narrative: Patient's white count was elevated at 12,000 lactic acid was 1.4 urinalysis was clear chest x-ray was clear Covid testing was negative. Result diagrams: 12/10/20 18:35 12/10/20 18:35 Labs: Lab Results 12/10/20 12/10/2021 Range/Units 18:35 18:35 18:35 WBC 12.4 H (4.5-11.0) K/mcL RBC 4.57 (4.50-5.90) M/mcL Hgb 13.9 (13.5-16.5) g/dL Hct 43.2 (41.0-55.0) % MCV 94.5 (80.0-100.0) fL MCH 30.4 (26.0-34.0) pg MCHC 32.2 (31.0-36.0) g/dL RDW 12.8 (11.5-14.5) % Plt Count 219 (140-440) K/mcL MPV 11.0 H (7.4-10.4) fL Neut % (Auto) 85.3 H (38.0-78.0) % Lymph % (Auto) 8.0 L (15.0-49.0) % [place] % (Auto) 6.4 (1.0-12.0) % Eos % (Auto) 0.1 (0.0-7.0) % Baso % (Auto) 0.2 (0.0-2.0) % Lymph # (Auto) 0.99 L (1.50-4.80) K/mcL [place] # (Auto) 0.79 (0.10-0.90) K/mcL Eos # (Auto) 0.01 (0.00-0.70) K/mcL Baso # (Auto) 0.02 (0.00-0.20) K/mcL Seg Neutrophils % 84 H (38-78) % Lymphocytes % 12 L (15-49) % Monocytes % (Manual) 4 (1-12) % Absolute Neutrophils 10.58 H (1.80-8.00) K/mcL Platelet Estimate Normal (Normal) RBC Morphology Normal (Normal) VBG Lactic Acid (0.5-2.0) mmol/L Sodium 140 (133-145) mmol/L Potassium 3.8 (3.3-5.1) mmol/L Chloride 102 (96-108) mmol/L Carbon Dioxide 26 (22-30) mmol/L Anion Gap 12.0 (8.0-16.0) BUN 21 (8-23) mg/dL Creatinine 1.1 (0.7-1.2) mg/dL GFR Calculation 61 Glucose 136 H (70-105) mg/dL Calcium 9.5 (8.6-10.4) mg/dL Total Bilirubin 0.6 (0.1-1.0) mg/dL AST 22 (<40) U/L ALT 23 (<40) U/L Alkaline Phosphatase 95 (39-117) U/L Total Protein 7.2 (5.9-8.4) gm/dL Albumin 4.1 (3.2-5.2) gm/dL Globulin 3.1 (2.2-3.7) gm/dL Albumin/Globulin Ratio 1.3 (1.0-2.3) Urine Color Urine Appearance (Clear) Urine pH (5.0-9.0) Ur Specific [place] (1.000-1.035) Urine Protein (Negative) mg/dL Urine Glucose (UA) (Negative) mg/dL Urine Ketones (Negative) mg/dL Urine Occult Blood (Negative) mg/dL Urine Nitrate (Negative) Urine Bilirubin (Negative) mg/dL Urine Urobilinogen mg/dL Ur Leukocyte Esterase (Negative) /ug Urine RBC (0-3) /hpf Urine WBC (0-4) /hpf Ur Squamous Epith Cells (0-4) /hpf Urine Bacteria (0) /hpf Urine Mucus (None) /hpf Ur Culture Indicated? 12/10/20 12/10/20 Range/Units 18:54 20:50 WBC (4.5-11.0) K/mcL RBC (4.50-5.90) M/mcL Hgb (13.5-16.5) g/dL Hct (41.0-55.0) % MCV (80.0-100.0) fL MCH (26.0-34.0) pg MCHC (31.0-36.0) g/dL RDW (11.5-14.5) % Plt Count (140-440) K/mcL MPV (7.4-10.4) fL Neut % (Auto) (38.0-78.0) % Lymph % (Auto) (15.0-49.0) % [place] % (Auto) (1.0-12.0) % Eos % (Auto) (0.0-7.0) % Baso % (Auto) (0.0-2.0) % Lymph # (Auto) (1.50-4.80) K/mcL [place] # (Auto) (0.10-0.90) K/mcL Eos # (Auto) (0.00-0.70) K/mcL Baso # (Auto) (0.00-0.20) K/mcL Seg Neutrophils % (38-78) % Lymphocytes % (15-49) % Monocytes % (Manual) (1-12) % Absolute Neutrophils (1.80-8.00) K/mcL Platelet Estimate (Normal) RBC Morphology (Normal) VBG Lactic Acid 1.4 (0.5-2.0) mmol/L Sodium (133-145) mmol/L Potassium (3.3-5.1) mmol/L Chloride (96-108) mmol/L Carbon Dioxide (22-30) mmol/L Anion Gap (8.0-16.0) BUN (8-23) mg/dL Creatinine (0.7-1.2) mg/dL GFR Calculation Glucose (70-105) mg/dL Calcium (8.6-10.4) mg/dL Total Bilirubin (0.1-1.0) mg/dL AST (<40) U/L ALT (<40) U/L Alkaline Phosphatase (39-117) U/L Total Protein (5.9-8.4) gm/dL Albumin (3.2-5.2) gm/dL Globulin (2.2-3.7) gm/dL Albumin/Globulin Ratio (1.0-2.3) Urine Color Yellow Urine Appearance Clear (Clear) Urine pH 5.0 (5.0-9.0) Ur Specific [place] 1.016 (1.000-1.035) Urine Protein Negative (Negative) mg/dL Urine Glucose (UA) Negative (Negative) mg/dL Urine Ketones Negative (Negative) mg/dL Urine Occult Blood Negative (Negative) mg/dL Urine Nitrate Negative (Negative) Urine Bilirubin Negative (Negative) mg/dL Urine Urobilinogen Negative mg/dL Ur Leukocyte Esterase Negative (Negative) /ug Urine RBC 1 (0-3) /hpf Urine WBC 1 (0-4) /hpf Ur Squamous Epith Cells < 1 (0-4) /hpf Urine Bacteria None (0) /hpf Urine Mucus Few A (None) /hpf Ur Culture Indicated? No Radiology Data Radiology results reviewed: Yes I reviewed the patient's radiology results. Radiology results narrative: Chest x-ray is unremarkable Discharge Plan Patient/Caregiver Discharge Instructions Pt seen by DERRICK BOAT RUNNER/PA only: No Clinical Impression: Sepsis Qualifiers: Sepsis type: sepsis due to unspecified organism Sepsis acute organ dysfunction status: without acute organ dysfunction Qualified Code(s): A41.9 - Sepsis, unspecified organism Patient Disposition: Xfer As Inpt ([facility]) Condition: Fair Discharge Date/Time: 12/11/20 01:49
[2020-12-10] MEDS ORDERED: ACETAMINOPHEN 325 MG TABLET PO ONE (19:52)
[2020-12-10 19:59] LABS: Basophils # (Auto) 0.02 K/mcL (0.00-0.20); Basophils % (Auto) 0.2 % (0.0-2.0); Eosinophils # (Auto) 0.01 K/mcL (0.00-0.70); Eosinophils % (Auto) 0.1 % (0.0-7.0); Hematocrit 43.2 % (41.0-55.0); Hemoglobin 13.9 g/dL (13.5-16.5); Lymphocytes # (Auto) 0.99 K/mcL (1.50-4.80); Mean Cell Volume 94.5 fL (80.0-100.0); Mean Corpuscular HGB Conc 32.2 g/dL (31.0-36.0); Monocytes # (Auto) 0.79 K/mcL (0.10-0.90); Monocytes % (Auto) 6.4 % (1.0-12.0); Neutrophils % (Auto) 85.3 % (38.0-78.0); Platelet Count 219 K/mcL (140-440); RBC 4.57 M/mcL (4.50-5.90); Red Cell Distribution Width 12.8 % (11.5-14.5); WBC 12.4 K/mcL (4.5-11.0)
[2020-12-10 20:21] LABS: ALT/SGPT 23 U/L (<40); AST/SGOT 22 U/L (<40); Albumin 4.1 gm/dL (3.2-5.2); Albumin/Globulin Ratio 1.3 (1.0-2.3); Alkaline Phosphatase 95 U/L (39-117); Bilirubin,Total 0.6 mg/dL (0.1-1.0); Blood Urea Nitrogen 21 mg/dL (8-23); Calcium 9.5 mg/dL (8.6-10.4); Carbon Dioxide 26 mmol/L (22-30); Chloride 102 mmol/L (96-108); Globulin 3.1 gm/dL (2.2-3.7); Glomerular Filtration Rate 61; Glucose 136 mg/dL (70-105)
[2020-12-10 20:56] LABS: Lymphocytes % 12 % (15-49); Monocytes % (Manual) 4 % (1-12); Platelet Estimate NORMAL (Normal); RBC Morphology NORMAL (Normal); Segmented Neutrophils % 84 % (38-78)
[2020-12-10 22:18] LABS: Appearance,Urine CLEAR (Clear); Bilirubin,Urine Negative (Negative); Color,Urine YELLOW; Culture Indicated,Urine No; Glucose,Urine (UA) Negative (Negative); Ketones,Urine Negative (Negative); Leukocyte Esterase,Urine Negative /ug (Negative); Mucus,Urine FEW /hpf; Nitrate,Urine Negative (Negative); Protein,Urine Negative (Negative); Specific Gravity,Urine 1.016 (1.000-1.035); Urine Blood Negative (Negative); Urine RBC 1 /hpf (0-3); Urine Squamous Epithelial Cell < 1 /hpf (0-4); Urine WBC 1 /hpf (0-4); Urobilinogen,Urine Negative
[2020-12-10] MEDS ORDERED: PIPERACILLIN SODIUM/TAZOBACTAM 3.375 GM in DEXTROSE 5% IN WATER 50 ML IV ONE (23:12)
[2020-12-10] MEDS ORDERED: AZITHROMYCIN 500 MG in DEXTROSE 5% IN WATER 250 ML IV ONE (23:12)
[2020-12-10] MEDS ORDERED: cefTRIAXone 2 GM in DEXTROSE 5% IN WATER 50 ML IV ONE (23:12)
[2020-12-11] MEDS ORDERED: ONDANSETRON 4 MG/2 ML VIAL IV ONE (01:02)
[2020-12-11] MEDS: 0.9 % SODIUM CHLORIDE 1,000 ML IV SCH ×3 (03:13→19:52)
--- NOTE | 2020-12-11 03:58 | XRay Report ---
CLINICAL INFORMATION: Fever COMPARISON: 09/17/2018 TECHNIQUE: PA and Lateral views FINDINGS: The heart size, mediastinum and pulmonary vessels are unremarkable. The lungs are clear. There are no effusions. The bones and soft tissues are within normal limits. IMPRESSION: Normal chest. Interpreted and Authenticated by: Jb Garcia 12/11/20
--- NOTE | 2020-12-11 04:00 | Cat Scan Report ---
CLINICAL INFORMATION: Trauma COMPARISON: None. TECHNIQUE: 2.5 mm helical slices were obtained in the skull base to vertex. Following reconstruction, axial reformatted images were reviewed at bone and parenchymal windows. The exam was performed using radiation dose optimization techniques including, but not limited to, automated exposure control, adjustment of the mA and/or kV according to patient size and use of iterative reconstruction technique. FINDINGS: The ventricles, sulci, fissures, and cisterns are symmetrically enlarged compatible with mild age-related atrophy. No subdural hemorrhage or extra-axial fluid collection appreciated. Moderate patchy chronic ischemic changes in the cerebral white matter expected for age. A cluster of remote lacunar infarcts are seen in the left lentiform nucleus and left external capsule. There is no intracerebral hemorrhage, mass affect, edema or other acute finding. Bone windows show no fracture. IMPRESSION: Mild atrophy and chronic ischemic changes in the cerebral white matter - expected for age. Remote lacunar infarct in the left basal ganglia. No intracerebral hemorrhage or other posttraumatic change. Interpreted and Authenticated by: Jb Garcia 12/11/20
--- NOTE | 2020-12-11 05:15 | Cat Scan Report ---
CLINICAL INFORMATION: Trauma COMPARISON: None. TECHNIQUE: 0.625 mm helical slices were obtained from the skull base through the superior T2 end plate, and following reconstruction, 2.5 mm sagittal, coronal and axial reformations were then processed. The exam was reviewed at bone and soft tissue windows. The exam was performed using radiation dose optimization techniques including, but not limited to, automated exposure control, adjustment of the mA and/or kV according to patient size and use of iterative reconstruction technique. FINDINGS: The sagittal and coronal reformatted images show the spine to be anatomically aligned. There is no fracture or other osseous abnormality. Cervical cord is normal in contour and caliber without hemorrhage or other abnormality. The C2-3 disc level is normal. At C3-4, moderate broad disc spur complex right-sided asymmetry and facet arthropathy results in mild central canal and severe right lateral recess/ IV foraminal narrowing with impingement of the exiting right C4 nerve root. At C4-5, moderate broad disc spur complex right-sided asymmetry and facet arthropathy result in moderate central canal and severe right IV foraminal narrowing with impingement of the exiting right C5 nerve root At C5-6, mild broad disc spur complex with left-sided asymmetry results in moderate central canal and left lateral recess narrowing. There is impingement of the exiting left C6 nerve root At C6-7, mild broad disc protrusion results in moderate central canal and bilateral lateral recess narrowing. There is probable impingement of the exiting C7 nerve roots C7-T1 disc level is normal IMPRESSION: 1. No fracture or post traumatic change. 2. Multilevel degeneration resulting in central canal, lateral recess and IV foraminal stenosis at the levels described. Please correlate with upper extremity radiculopathy Interpreted and Authenticated by: Jb Garcia 12/11/20
--- NOTE | 2020-12-11 06:03 | Cat Scan Report ---
CLINICAL INFORMATION: Sepsis COMPARISON: Abdomen and pelvic CT 12/07/2015 TECHNIQUE: 80 cc of [id number] were injected intravenously, and 50 seconds later 2.5 mm helical slices were obtained from the lung apices through the subtrochanteric regions of the femurs. Following reconstruction, 2.5 mm sagittal, coronal and axial reformatted images were processed and reviewed at multiple windows and levels. 7 mm MIP reconstructions were obtained through the lungs to optimize nodule detection.The exam was performed using radiation dose optimization techniques including, but not limited to, automated exposure control, adjustment of the mA and/or kV according to patient size and use of iterative reconstruction technique. FINDINGS: Pulmonary parenchymal windows show only subsegmental atelectasis in the posterior upper and lower lobes. There are no infiltrates or effusions. Scattered partially calcified pleural plaque throughout both thoracic region suggests asbestos exposure. Mediastinal windows show the heart to be moderately enlarged heavy calcific plaque present in the coronary arteries. Pulmonary arteries are unremarkable - no evidence of emboli. Thoracic aorta is normal diameter diffuse intimal thickening. There is no adenopathy in the mediastinal, hilar or axillary region. Small hiatal hernia noted. Abdominal images show the liver is normal in size and configuration. The gallbladder is mildly contracted and there is equivocal wall thickening and enhancement suggesting possible lytic acalculus cholecystitis. Intrahepatic and common bile ducts are normal caliber: CBD is 5 mm. Moderate pancreatic atrophy features fat replacement of pancreatic parenchyma. Both kidneys show mild perinephric stranding which is identical to the remote 2016 CT and should be considered insignificant. The upper collecting systems and ureters are grossly normal. Both adrenal glands, spleen are normal. Aorta is normal diameter with scattered atherosclerotic plaque. Aortic branches contain plaque, but no stenoses evident Pelvic images show moderate enlargement of the prostate - as previously seen. The urinary bladder is unremarkable. There are multiple sigmoid diverticuli, but no evidence of diverticulitis. The remaining colon, appendix, small bowel and stomach are grossly normal. There is no free air, free fluid or adenopathy. Bone windows show no focal osseous abnormality. Degenerative change in the lumbar spine IMPRESSION: 1. Gallbladder is contracted and demonstrates equivocal wall thickening and enhancement. Suggest gallbladder ultrasound to evaluate for acalculus cholecystitis. No other potential sepsis source identified in the chest, abdomen or pelvis. 2. Moderate cardiomegaly with extremely heavy calcific plaque in the coronary arteries. Subocclusive and/or occlusive coronary artery disease is suspected. Small amount of calcification seen in the aortic valve. Subendocardial fat in the cardiac apex and distal septum suggests an old nontransmural infarct 3. Marked atrophy of the pancreas with fat replacement of the parenchyma - progressing from 2016 4. Small hiatal hernia. 5. Moderate prostate enlargement - stable 6. 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
[2020-12-11] MEDS ORDERED: ONDANSETRON (PP) 4 MG TABLET PO PRN (08:10)
[2020-12-11] MEDS ORDERED: POTASSIUM CHLORIDE 40 MEQ in DEXTROSE 5% IN WATER 500 ML IV PRN (08:11)
[2020-12-11] MEDS ORDERED: ACETAMINOPHEN 325 MG TABLET PO PRN (08:11)
[2020-12-11] MEDS ORDERED: HYDROmorphone 0.5 MG/0.5 ML SYRINGE IV PRN (08:11)
[2020-12-11] MEDS ORDERED: ACETAMINOPHEN 650 MG/65 ML BAG IV PRN (08:11)
[2020-12-11] MEDS ORDERED: POLYETHYLENE GLYCOL 3350 17 GM PACKET PO PRN (08:11)
[2020-12-11] MEDS ORDERED: ONDANSETRON 4 MG ODT TABLET SL PRN (08:11)
[2020-12-11] MEDS ORDERED: MELATONIN 3 MG TABLET PO PRN (08:11)
[2020-12-11] MEDS ORDERED: MAGNESIUM SULFATE 2 GM/50 ML BAG IV PRN (08:11)
[2020-12-11] MEDS ORDERED: ONDANSETRON 4 MG/2 ML VIAL IV PRN (08:11)
[2020-12-11] MEDS ORDERED: BISACODYL 10 MG SUPP.RECT PR PRN (08:11)
[2020-12-11] MEDS ORDERED: POTASSIUM CHLORIDE 20 MEQ PACKET PO PRN (08:11)
[2020-12-11] MEDS ORDERED: NOREPINEPHRINE BITARTRATE 8 MG in 0.9 % SODIUM CHLORIDE 242 ML IV PRN (08:15)
[2020-12-11] MEDS ORDERED: FINASTERIDE 5 MG TABLET PO SCH (08:15)
[2020-12-11] MEDS ORDERED: metroNIDAZOLE 500 MG/100 ML BAG IV SCH (08:15)
--- NOTE | 2020-12-11 08:16 | Internal Med History&Physical ---
HPI History of Present Illness Patient information: Note initiated : 12/11/20 at 8:14 am Service Date, if different from initiated Date: [] Patient: Ricardo Romano a 85 y/o M admitted on 12/11/20 for DIZZINESS. Chief Complaint:Fall History of present illness: Mr. Romano is a 85 year old M with history of chronic pain/HTN/GERD/neuropathy who presented to the ER following an episode of dizziness while getting into his truck leading to fall. He subsequently presents to the ER for evaluation. Patient had a similar episode in October that was associated with intense nausea however following a negative work-up he was discharged. During today's evaluation the ER work-up was consistent with fever/leukocytosis and a concern was raised about sepsis. Patient blood pressure on presentation was mid 80s and was started on aggressive crystalloid/antibiotics after cultures were drawn. CT chest abdomen pelvis was unremarkable except for possible acalculous cholecystitis. Subsequently hospital service was consulted for admission. At the time of my evaluation patient is alert and oriented. He endorses history as above. Denies taking new medications. He is currently on 3 different antihypertensives but denies postural dizziness or chest palpitation tearing headache or seizure-like episode. He denies losing consciousness. He further denies dysuria, diarrhea, dyspepsia or prior similar episodes. He also denies sick contacts or flulike symptoms Review of systems 10 point review system was performed and is negative except for ones discussed above PFSH PFSH All Active Problems (Updated 12/11/20 @ 07:53 by Edwin Cuellar MD) Nausea and vomiting (Acute) Sepsis (Acute) History of myocardial infarction (Acute) Carpal tunnel syndrome on right (Chronic) Left shoulder pain (Chronic) Radiculopathy, lumbar region (Chronic) Spinal stenosis, lumbar region with neurogenic claudication (Chronic) Chronic pain (Chronic) Low back pain (Chronic) Radiculopathy, lumbosacral region (Chronic) Pain in left hip (Chronic) Bursitis of left shoulder (Chronic) Bursitis of right shoulder (Chronic) Pain of right hip joint (Chronic) Hypoxia (Acute) Post surgical complication (Acute) Spinal stenosis at L4-L5 level (Chronic) Lumbago without sciatica (Chronic) 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) Hx of repair of rotator cuff (Chronic) Essential hypertension (Chronic) Dyslipidemia (Chronic) Coronary atherosclerosis of [place] coronary artery (Chronic 10/17/13) History of colonic polyps (Chronic) Chronic ischemic heart disease (Chronic) Benign localized prostatic hyperplasia without lower urinary tract symptoms (LUTS) (Chronic) 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) Medical History (Updated 12/11/20 @ 07:53 by Edwin Cuellar MD) 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) Dr Morrison Benign localized prostatic hyperplasia without lower urinary tract symptoms (LUTS) (Chronic) BPH with urinary obstruction (Chronic) Bursitis of left shoulder (Chronic) Bursitis of right shoulder (Chronic) Carpal tunnel syndrome on right (Chronic) Chronic ischemic heart disease (Chronic) Chronic pain (Chronic) Closed fracture of sternum (Resolved) 2007 Closed fracture of tibia and fibula (Resolved) 2007 Coronary atherosclerosis of [place] coronary artery (Chronic 10/17/13) 09/04/14 Dr Morrison - repeat stenting procedure Dyslipidemia (Chronic) Essential hypertension (Chronic) Hematuria (Inactive) History of colonic polyps (Chronic) History of myocardial infarction (Acute) X2 Hypotension (Resolved 09/04/14) Dr Morrison Iron deficiency anemia due to chronic blood loss (Resolved) Left shoulder pain (Chronic) Low back pain (Chronic) Nonulcer dyspepsia (Chronic) Pain in left hip (Chronic) Pain of right hip joint (Chronic) Radiculopathy, lumbar region (Chronic) Radiculopathy, lumbosacral region (Chronic) Rib contusion (Resolved) 2007 Spinal stenosis, lumbar region with neurogenic claudication (Chronic) Urinary tract infection (Resolved) Urinary tract infection (Inactive) Surgical History (Updated 11/06/20 @ 13:42 by Tyler Alvarez DO) History of colonoscopy (Chronic 12/26/15) History of coronary artery stent placement (Inactive) 1996, repeat 2013 History of endoscopy (Inactive 01/08/16) Caspule endoscopy History of esophagogastroduodenoscopy (Inactive 12/15/15) History of photovaporization of prostate (Acute) History of surgery (Acute) Hip Joint Injection Lt. w/o sed 06/18/202006/18 Hip Joint Injection Rt. w/o sed 06/08/202011/16 Hip Joint Injection Lt. w/o sed 11/04/201809/16 MILD L2-3, L3-4 w/ sed 09/17/1803/17 TF FARIDA #3 Right L4-5 w/o sed 03/19/201801/17 LESI #2 L3-4 w/o sed 01/19/1812/17 LESI #1 L3-4 w/o sed 12/23/2017 Hx of cataract surgery (Resolved) 2004 Hx of lumbosacral spine surgery (Inactive) and epidural injections post op Hx of repair of rotator cuff (Chronic) Previous back surgery (Resolved) 1988 Family History Unknown Cardiac disease Social History leisure activities: hunting, fishing and other physical activity: walking smoking status: Never smoker alcohol intake frequency: does not drink substance use type: does not use MEDS/ALLERGIES Home Medications and Allergies Home Medications Medication Instructions Recorded Confirmed Type multivitamin 1 tab-cap PO QDAY 11/02/15 12/11/20 History naproxen sodium 220 mg PO QDAY 03/05/16 12/11/20 History nortriptyline 10 mg capsule 10 mg PO QHS #90 cap 01/18/18 12/11/20 Rx nitroglycerin 0.4 mg sublingual 0.4 mg SUBLINGUAL Q5-15MIN PRN #30 01/27/18 12/11/20 Rx tablet tab pantoprazole 40 mg tablet,delayed 40 mg PO QAM #90 tab 01/27/18 12/11/20 Rx release amlodipine 10 mg PO QDAY 12/11/20 12/11/20 History aspirin 81 mg PO QPM 12/11/20 12/11/20 History atorvastatin 80 mg PO QDAY 12/11/20 12/11/20 History carvedilol 25 mg PO BID 12/11/20 12/11/20 History finasteride [Proscar] 5 mg PO QDAY 12/11/20 12/11/20 History hydralazine 25 mg PO PRN PRN 12/11/20 12/11/20 History losartan 100 mg PO QDAY 12/11/20 12/11/20 History pregabalin [Lyrica] 150 mg PO QHS 12/11/20 12/11/20 History Allergies Allergy/AdvReac Type Severity Reaction Status Date / Time latex Allergy Severe Difficulty Verified 12/11/20 07:01 Breathing Sulfa (Sulfonamide Allergy Mild Hives Verified 12/11/20 07:01 Antibiotics) niacin AdvReac Mild Flushing Verified 12/11/20 07:01 [From Niaspan Extended-Release] sulfasalazine AdvReac Mild Dizziness Verified 12/10/20 18:23 EXAM Constitutional Vitals: Temp Pulse Resp BP Pulse Ox 101.2 F H 92 H 23 H 102/59 90 12/11/20 07:01 12/11/20 07:01 12/11/20 07:01 12/11/20 07:01 12/11/20 07:01 Alert oriented no anxiety Head bruising noted around right eyebrow Oral cavity moist No ear nose discharge Eye movement symmetrical Neck supple no lymphadenopathy S1-S2 regular Nonlabored breathing Nondistended nontender abdomen Lower extremity no cyanosis clubbing or joint swelling Skin no suspicious lesion Psych anxious no hallucination Neuro normal higher function DATA Data Completed and Pending Labs: Labs from last 24 hours 12/10/20 12/10/20 12/10/20 20:50 18:54 18:35 WBC RBC Hgb Hct MCV MCH MCHC RDW Plt Count MPV Neut % (Auto) Lymph % (Auto) Isabela % (Auto) Eos % (Auto) Baso % (Auto) Lymph # (Auto) Isabela # (Auto) Eos # (Auto) Baso # (Auto) Seg Neutrophils % 84 H Lymphocytes % 12 L Monocytes % (Manual) 4 Absolute Neutrophils Platelet Estimate Normal RBC Morphology Normal VBG Lactic Acid 1.4 Sodium Potassium Chloride Carbon Dioxide Anion Gap BUN Creatinine GFR Calculation Glucose Calcium Total Bilirubin AST ALT Alkaline Phosphatase Total Protein Albumin Globulin Albumin/Globulin Ratio Urine Color Yellow Urine Appearance Clear Urine pH 5.0 Ur Specific Glide 1.016 Urine Protein Negative Urine Glucose (UA) Negative Urine Ketones Negative Urine Occult Blood Negative Urine Nitrate Negative Urine Bilirubin Negative Urine Urobilinogen Negative Ur Leukocyte Esterase Negative Urine RBC 1 Urine WBC 1 Ur Squamous Epith Cells < 1 Urine Bacteria None Urine Mucus Few A Ur Culture Indicated? No 12/10/20 12/10/20 18:35 18:35 WBC 12.4 H RBC 4.57 Hgb 13.9 Hct 43.2 MCV 94.5 MCH 30.4 MCHC 32.2 RDW 12.8 Plt Count 219 MPV 11.0 H Neut % (Auto) 85.3 H Lymph % (Auto) 8.0 L Isabela % (Auto) 6.4 Eos % (Auto) 0.1 Baso % (Auto) 0.2 Lymph # (Auto) 0.99 L Isabel[place] # (Auto) 0.79 Eos # (Auto) 0.01 Baso # (Auto) 0.02 Seg Neutrophils % Lymphocytes % Monocytes % (Manual) Absolute Neutrophils 10.58 H Platelet Estimate RBC Morphology VBG Lactic Acid Sodium 140 Potassium 3.8 Chloride 102 Carbon Dioxide 26 Anion Gap 12.0 BUN 21 Creatinine 1.1 GFR Calculation 61 Glucose 136 H Calcium 9.5 Total Bilirubin 0.6 AST 22 ALT 23 Alkaline Phosphatase 95 Total Protein 7.2 Albumin 4.1 Globulin 3.1 Albumin/Globulin Ratio 1.3 Urine Color Urine Appearance Urine pH Ur Specific Glide Urine Protein Urine Glucose (UA) Urine Ketones Urine Occult Blood Urine Nitrate Urine Bilirubin Urine Urobilinogen Ur Leukocyte Esterase Urine RBC Urine WBC Ur Squamous Epith Cells Urine Bacteria Urine Mucus Ur Culture Indicated? A/P Narrative A/P Narrative: * GNR Bacteremia-unclear etiology, rule out biliary tract involvement/GI/ source. Broad antibiotic coverage. Repeat surveillance cultures. * Sepsis secondary to bacteremia. Continue management per guidelines. Pancultures/antibiotic coverage/crystalloids and vasopressor support if indicated * Fall secondary to weakness and lightheadedness secondary to sepsis related hypotension follow. Telemetry monitoring to rule out arrhythmia, echocardiogram, orthostatics * History of hypertension hold antihypertensives until systolics improves * Possible acalculous cholecystitis-ultrasound gallbladder. Surgery consult if indicated. * Neuropathy continue Lyrica * Hyperlipidemia continue statin * Full code * Prophylaxis Heparin Plan * Inpatient admission * Sepsis work-up * Gallbladder ultrasound/echocardiogram * PT OT nutrition support * Pre-existing medical condition management home meds Time Spent With Patient Time: Total time spent is greater than 50% in coordination of care (as documented) at patient's floor/unit and/or counseling patient: QUALITY VTE Deep Vein Thrombosis/Pulmonary Embolism Present on Admission: No
[2020-12-11] MEDS ORDERED: NITROGLYCERIN 0.4 MG TAB.SUBL SL PRN (08:20)
[2020-12-11] MEDS ORDERED: NAPROXEN 250 MG TABLET PO PRN (08:21)
[2020-12-11] MEDS: 0.9 % SODIUM CHLORIDE 250 ML IV SCH ×2 (08:41→21:24)
[2020-12-11] MEDS ORDERED: MULTIVITAMIN PO SCH (09:00)
--- NOTE | 2020-12-11 09:18 | Ultrasound Report ---
CLINICAL INFORMATION: sepsis. Possible cholecystitis on the basis of CT COMPARISON: Abdomen and pelvic CT 12/10/2020 FINDINGS: The liver is normal in size and echotexture. Gallbladder wall is equivocally thickened - 4 mm, but there is no focal tenderness or pericholecystic fluid. No stones identified. The intrahepatic and common bile ducts are normal caliber: CBD is 4 mm. Heterogeneous pancreatic echotexture is compatible with diffuse atrophy seen on CT. No free fluid IMPRESSION: Equivocal gallbladder wall thickening likely due to contracted state.There is no sonographic Corrales's sign, pericholecystic fluid stones or other supportive evidence for cholecystitis Interpreted and Authenticated by: Jb Garcia 12/11/20
[2020-12-11] MEDS: PIPERACILLIN SODIUM/TAZOBACTAM 3.375 GM in DEXTROSE 5% IN WATER 50 ML IV SCH ×4 (09:42→23:54)
[2020-12-11] MEDS: PANTOPRAZOLE 40 MG TABLET PO SCH (09:43)
[2020-12-11] MEDS: MULTIVIT,THER IRON,CA,FA & MIN 1 TABLET PO SCH (11:41)
[2020-12-11] MEDS: HEPARIN 5,000 UNIT/ML VIAL SQ SCH ×2 (11:41→20:24)
[2020-12-11] MEDS: 0.9 % SODIUM CHLORIDE 10 ML SYRINGE IV SCH ×2 (13:26→20:24)
[2020-12-11] MEDS ORDERED: NORTRIPTYLINE 10 MG CAPSULE PO SCH (21:00)
[2020-12-11] MEDS ORDERED: ATORVASTATIN 40 MG TABLET PO SCH (21:00)
[2020-12-11] MEDS ORDERED: PREGABALIN 150 MG CAPSULE PO SCH (21:00)
[2020-12-11] MEDS ORDERED: SENNOSIDES/DOCUSATE SODIUM 1 TAB TABLET PO SCH (21:00)
[2020-12-11] MEDS ORDERED: ASPIRIN 81 MG TAB.CHEW PO SCH (21:00)
[2020-12-12] MEDS: PIPERACILLIN SODIUM/TAZOBACTAM 3.375 GM in DEXTROSE 5% IN WATER 50 ML IV SCH ×4 (05:19→23:53)
[2020-12-12] MEDS: 0.9 % SODIUM CHLORIDE 10 ML SYRINGE IV SCH ×3 (05:20→21:09)
[2020-12-12] MEDS: 0.9 % SODIUM CHLORIDE 1,000 ML IV SCH (05:47)
[2020-12-12 06:05] LABS: Basophils # (Auto) 0.02 K/mcL (0.00-0.20); Basophils % (Auto) 0.2 % (0.0-2.0); Eosinophils # (Auto) 0.15 K/mcL (0.00-0.70); Eosinophils % (Auto) 1.6 % (0.0-7.0); Hematocrit 33.9 % (41.0-55.0); Hemoglobin 10.9 g/dL (13.5-16.5); Lymphocytes # (Auto) 1.45 K/mcL (1.50-4.80); Lymphocytes % (Auto) 15.9 % (15.0-49.0); Mean Cell Volume 97.4 fL (80.0-100.0); Mean Corpuscular HGB Conc 32.2 g/dL (31.0-36.0); Monocytes # (Auto) 1.11 K/mcL (0.10-0.90); Monocytes % (Auto) 12.2 % (1.0-12.0); Neutrophils % (Auto) 70.1 % (38.0-78.0); Platelet Count 131 K/mcL (140-440); RBC 3.48 M/mcL (4.50-5.90); Red Cell Distribution Width 13.2 % (11.5-14.5); WBC 9.1 K/mcL (4.5-11.0)
[2020-12-12 07:57] LABS: ALT/SGPT 26 U/L (<40); AST/SGOT 25 U/L (<40); Albumin 2.8 gm/dL (3.2-5.2); Albumin/Globulin Ratio 1.2 (1.0-2.3); Alkaline Phosphatase 57 U/L (39-117); Bilirubin,Direct < 0.2 mg/dL (<0.3); Bilirubin,Total 0.4 mg/dL (0.1-1.0); Blood Urea Nitrogen 25 mg/dL (8-23); Carbon Dioxide 23 mmol/L (22-30); Chloride 106 mmol/L (96-108); Globulin 2.3 gm/dL (2.2-3.7); Glomerular Filtration Rate 69; Glucose 93 mg/dL (70-105); Lactate Dehydrogenase 147 U/L (135-225); Phosphorous 2.5 mg/dL (2.5-4.5); Triglycerides 90 mg/dL (<150); Uric Acid 2.4 mg/dL (2.5-8.0)
[2020-12-12] MEDS: 0.9 % SODIUM CHLORIDE 250 ML IV SCH ×5 (08:28→23:54)
[2020-12-12] MEDS: HEPARIN 5,000 UNIT/ML VIAL SQ SCH ×2 (08:32→21:04)
[2020-12-12] MEDS: PANTOPRAZOLE 40 MG TABLET PO SCH (08:32)
[2020-12-12] MEDS: MULTIVIT,THER IRON,CA,FA & MIN 1 TABLET PO SCH (08:32)
[2020-12-12] MEDS ORDERED: FINASTERIDE 5 MG TABLET PO SCH (09:26)
[2020-12-12] MEDS ORDERED: POLYETHYLENE GLYCOL 3350 17 GM PACKET PO PRN (09:26)
[2020-12-12] MEDS ORDERED: MELATONIN 3 MG TABLET PO PRN (09:26)
[2020-12-12] MEDS ORDERED: HYDROmorphone 0.5 MG/0.5 ML SYRINGE IV PRN (09:26)
[2020-12-12] MEDS ORDERED: ONDANSETRON 4 MG ODT TABLET SL PRN (09:26)
[2020-12-12] MEDS ORDERED: POTASSIUM CHLORIDE 40 MEQ in DEXTROSE 5% IN WATER 500 ML IV PRN (09:26)
[2020-12-12] MEDS ORDERED: MAGNESIUM SULFATE 2 GM/50 ML BAG IV PRN (09:26)
[2020-12-12] MEDS ORDERED: BISACODYL 10 MG SUPP.RECT PR PRN (09:26)
[2020-12-12] MEDS ORDERED: ONDANSETRON 4 MG/2 ML VIAL IV PRN (09:26)
[2020-12-12] MEDS ORDERED: ACETAMINOPHEN 650 MG/65 ML BAG IV PRN (09:26)
[2020-12-12] MEDS ORDERED: NAPROXEN 250 MG TABLET PO PRN (09:26)
[2020-12-12] MEDS ORDERED: NITROGLYCERIN 0.4 MG TAB.SUBL SL PRN (09:26)
[2020-12-12] MEDS: POTASSIUM CHLORIDE 20 MEQ PACKET PO PRN (10:30)
--- NOTE | 2020-12-12 14:59 | Internal Med Progress Note ---
SUBJECTIVE Subjective Patient information: Note initiated : 12/12/20 at 2:55 pm Service Date, if different from initiated Date: [] Patient: Ricardo Romano 85 y/o M admitted on 12/11/20 for DIZZINESS. Chief Complaint: [] Interval history: Mr. Romano is a 85 year old M with history of chronic pain/HTN/GERD/neuropathy who presented to the ER following an episode of dizziness while getting into his truck leading to fall. He subsequently pre sents to the ER for evaluation. Patient had a similar episode in October that was associated with intense nausea however following a negative work-up he was discharged. During today's evaluation the ER work-up was consistent with fever/leukocytosis and a concern was raised about sepsis. Patient blood pressure on presentation was mid 80s and was started on aggressive crystalloid/antibiotics after cultures were drawn. CT chest abdomen pelvis was unremarkable except for possible acalculous cholecystitis. Subsequently hospital service was consulted for admission. At the time of my evaluation patient is alert and oriented. He endorses history as above. Denies taking new medications. He is currently on 3 different antihypertensives but denies postural dizziness or chest palpitation tearing headache or seizure-like episode. He denies losing consciousness. He further denies dysuria, diarrhea, dyspepsia or prior similar episodes. He also denies sick contacts or flulike symptoms 12/12-patient clinically improving. Hypotension resolved. White count downtrending. On antibiotic coverage. No clear source despite aggressive investigation during CT/abdominal ultrasound. E. coli on blood culture. COVID- 19 negative. Fever defervesced. Denies lightheadedness or dizziness. Tole rating diet. Ongoing physical therapy. Anticipate discharge in 24 to 48 hours pending clinical improvement on antibiotics for E. coli coverage. Constitutional Vitals: Vital Signs Temp Pulse Resp BP Pulse Ox 98.1 F 62 19 130/80 97 12/12/20 09:33 12/12/20 08:00 12/12/20 09:01 12/12/20 09:33 12/12/20 09:33 Period Temp Pulse Resp BP Sys/Hoffman Pulse Ox Last 24 Hr 97.4 F-98.1 F 58-64 14-21 84-153/50-107 89-100 Intake and Output 12/12/20 12/12/20 12/12/20 05:59 13:59 21:59 Intake Total 50 1580 Output Total 400 Balance -350 1580 Alert oriented No anxiety Nonlabored breathing Nontender abdomen Intake & Output: Intake & Output 12/12/20 12/12/20 12/12/20 05:59 13:59 21:59 Intake Total 50 1580 Output Total 400 Balance -350 1580 Intake: IV 50 1100 Sodium Chloride 0.9% 1,000 ml @ 1000 75 mls/hr IV .[id number] [facility] Rx#: [id number] Zosyn 3.375 gm In Dextrose 5% 50 100 in Water 50 ml @ 100 mls/hr IV Q6H [facility] Rx#:[id number] Oral 480 Output: Void Amount 400 Other: Meal Breakfast Percent of Meal Consumed 75% Feeding Ability Independent Urine Appearance Clear Clear Urine Color Dark Yellow Dark Yellow Urine Odor Normal Normal Stool Size Moderate Stool Color Brown Stool Consistency Formed Cylindrical # Voids 1 # Bowel Movements 1 OBJ DATA Labs CBC & Chem 7: 12/12/20 05:08 12/12/20 05:08 Labs: Abnormal Lab Results 12/12/20 12/12/20 12/10/20 05:08 05:08 20:50 WBC RBC 3.48 L Hgb 10.9 L Hct 33.9 L Plt Count 131 L MPV 11.0 H Neut % (Auto) Lymph % (Auto) Yates % (Auto) 12.2 H Lymph # (Auto) 1.45 L Yates # (Auto) 1.11 H Seg Neutrophils % Lymphocytes % Absolute Neutrophils BUN 25 H Glucose Uric Acid 2.4 L Calcium 8.0 L Total Protein 5.1 L Albumin 2.8 L Urine Mucus Few A 12/10/20 12/10/20 12/10/20 18:35 18:35 18:35 WBC 12.4 H RBC Hgb Hct Plt Count MPV 11.0 H Neut % (Auto) 85.3 H Lymph % (Auto) 8.0 L Yates % (Auto) Lymph # (Auto) 0.99 L Yates # (Auto) Seg Neutrophils % 84 H Lymphocytes % 12 L Absolute Neutrophils 10.58 H BUN Glucose 136 H Uric Acid Calcium Total Protein Albumin Urine Mucus Meds: Medications Acetaminophen (Tylenol) 650 mg PO Q4-6HP PRN; Protocol PRN Reason: Per Pain Protocol/Fever > 101 Aspirin (Aspirin) 81 mg PO QPM [facility] Atorvastatin Calcium (Lipitor) 80 mg PO HS [facility] Bisacodyl (Dulcolax) 10 mg SD Q2-3DAYS PRN PRN Reason: Constipation Finasteride (Proscar) 5 mg PO Q2-3DAYS [facility] Heparin Sodium (Porcine) (Heparin) 5,000 unit SQ Q12 [facility] Hydromorphone HCl (Dilaudid) 0.25 - 0.5 mg IV Q4HP PRN; Protocol PRN Reason: Per Pain Protocol Sodium Chloride (Sodium Chloride 0.9%) 250 mls @ 20 mls/hr IV .[id number] [facility] Last Admin: 12/12/20 09:49 Dose: Not Given Documented by: Acetaminophen (Ofirmev) 650 mg in 65 mls @ 130 mls/hr IV Q6HP PRN; Protocol PRN Reason: Per Pain Protocol/Fever > 101 Magnesium Sulfate (Magnesium Sulfate) 2 gm in 50 mls @ 50 mls/hr IV UD PRN PRN Reason: MG = or < 1.7 Piperacillin Sod/Tazobactam (Sod 3.375 gm/ Dextrose) 50 mls @ 100 mls/hr IV Q6H [facility]; Protocol Last Infusion: 12/12/20 12:30 Dose: Infused Documented by: Potassium Chloride 40 meq/ (Dextrose) 520 mls @ 130 mls/hr IV UD PRN PRN Reason: K+ = or < 3.5 Sodium Chloride (Sodium Chloride 0.9%) 250 mls @ 20 mls/hr IV .[id number] [facility] Last Admin: 12/12/20 09:49 Dose: Not Given Documented by: Iron Carb/Multivit/[place]/Folic Acid (Multivitamin W/Minerals) 1 tab PO DAILY [facility] Melatonin (Melatonin 3mg Tablet) 3 mg PO HSP PRN PRN Reason: Insomnia Naproxen (Naprosyn) 250 mg PO DAILYP PRN PRN Reason: Pain Nitroglycerin (Nitrostat) 0.4 mg SL Q5M PRN PRN Reason: Chest Pain Nortriptyline HCl (Pamelor) 10 mg PO QHS [facility] Ondansetron HCl (Zofran Odt) 4 mg SL Q4-6HP PRN; Protocol PRN Reason: Nausea And Vomiting Last Admin: 12/12/20 13:11 Dose: 4 mg Documented by: Ondansetron HCl (Zofran) 4 mg IV Q4-6HP PRN; Protocol PRN Reason: Nausea And Vomiting Pantoprazole Sodium (Protonix) 40 mg PO QAMAC [facility] Polyethylene Glycol (Miralax) 17 gm PO DAILYP PRN PRN Reason: Constipation Potassium Chloride (Klor-Con) 40 meq PO DAILYP PRN PRN Reason: K+ < 3.5 Last Admin: 12/12/20 10:30 Dose: 40 meq Documented by: Pregabalin (Lyrica) 150 mg PO QHS [facility] Senna/Docusate Sodium (Senna Plus Tablet) 1 tab PO HS [facility] Sodium Chloride (Saline Flush) 10 ml IV Q8 [facility] Last Admin: 12/12/20 12:53 Dose: 10 ml Documented by: A/P Narrative A/P Narrative: * E. coli bacteremia-unclear source, sensitivities pending. On empiric antibiotic including Zosyn. No evidence of GI/ pathology. De-escalate antibiotics based on culture sensitivities. * Sepsis secondary to bacteremia. Clinically improved with management per guidelines. White count down to 9.1 from 14.7. * Fall secondary to weakness and lightheadedness secondary to sepsis related hypotension. No evidence of arrhythmia, orthostatics resolved, echo EF 60% aortic valve unremarkable * History of hypertension hold antihypertensives until systolics improves * Possible acalculous cholecystitis-ultrasound gallbladder. Surgery consult if indicated. * Neuropathy continue Lyrica * Hyperlipidemia continue statin * Full code * Prophylaxis Heparin Plan * Transfer to medical floor * Continue antibiotics de-escalate based on sensitivities * PT OT nutrition support * Pre-existing medical condition management home meds Time Spent With Patient Time: Total time spent is greater than 50% in coordination of care (as documented) at patient's floor/unit and/or counseling patient: QUALITY VTE Deep Vein Thrombosis/Pulmonary Embolism Present on Admission: No
[2020-12-12] MEDS: ATORVASTATIN 40 MG TABLET PO SCH (21:04)
[2020-12-12] MEDS: PREGABALIN 150 MG CAPSULE PO SCH (21:04)
[2020-12-12] MEDS: ASPIRIN 81 MG TAB.CHEW PO SCH (21:04)
[2020-12-12] MEDS: NORTRIPTYLINE 10 MG CAPSULE PO SCH (21:04)
[2020-12-12] MEDS: SENNOSIDES/DOCUSATE SODIUM 1 TAB TABLET PO SCH (21:05)
[2020-12-13] MEDS: PIPERACILLIN SODIUM/TAZOBACTAM 3.375 GM in DEXTROSE 5% IN WATER 50 ML IV SCH ×4 (05:52→23:12)
--- NOTE | 2020-12-13 05:52 | XRay Report ---
CLINICAL INFORMATION: Dyspnea COMPARISON: 12/10/[address] TECHNIQUE: Portable FINDINGS: The heart size, mediastinum and pulmonary vessels are unremarkable. 9 mm calcified nodule in the lateral left upper lobe represents a known pleural-based granuloma on recent 12/10/[address] The lungs are otherwise, clear. There are no effusions. The bones and soft tissues are within normal limits. IMPRESSION: Normal chest. Interpreted and Authenticated by: Jb Garcia 12/13/20
[2020-12-13] MEDS: 0.9 % SODIUM CHLORIDE 10 ML SYRINGE IV SCH ×3 (05:53→20:10)
[2020-12-13 06:43] LABS: Basophils # (Auto) 0.01 K/mcL (0.00-0.20); Basophils % (Auto) 0.2 % (0.0-2.0); Eosinophils # (Auto) 0.21 K/mcL (0.00-0.70); Eosinophils % (Auto) 3.2 % (0.0-7.0); Hematocrit 34.8 % (41.0-55.0); Hemoglobin 11.4 g/dL (13.5-16.5); Lymphocytes # (Auto) 1.54 K/mcL (1.50-4.80); Lymphocytes % (Auto) 23.6 % (15.0-49.0); Mean Cell Volume 94.3 fL (80.0-100.0); Mean Corpuscular HGB Conc 32.8 g/dL (31.0-36.0); Mean Platelet Volume 10.9 fL (7.4-10.4); Monocytes # (Auto) 0.73 K/mcL (0.10-0.90); Monocytes % (Auto) 11.2 % (1.0-12.0); Neutrophils % (Auto) 61.8 % (38.0-78.0); Platelet Count 165 K/mcL (140-440); RBC 3.69 M/mcL (4.50-5.90); Red Cell Distribution Width 12.9 % (11.5-14.5); WBC 6.5 K/mcL (4.5-11.0)
[2020-12-13] MEDS: PANTOPRAZOLE 40 MG TABLET PO SCH (07:06)
[2020-12-13] MEDS: ACETAMINOPHEN 325 MG TABLET PO PRN ×2 (07:12→20:37)
[2020-12-13 07:29] LABS: ALT/SGPT 27 U/L (<40); AST/SGOT 24 U/L (<40); Albumin 2.8 gm/dL (3.2-5.2); Alkaline Phosphatase 73 U/L (39-117); Bilirubin,Direct < 0.2 mg/dL (<0.3); Bilirubin,Total 0.3 mg/dL (0.1-1.0); Blood Urea Nitrogen 21 mg/dL (8-23); Calcium 8.4 mg/dL (8.6-10.4); Carbon Dioxide 28 mmol/L (22-30); Chloride 108 mmol/L (96-108); Globulin 2.7 gm/dL (2.2-3.7); Glomerular Filtration Rate 55; Glucose 100 mg/dL (70-105); Lactate Dehydrogenase 149 U/L (135-225); Phosphorous 2.9 mg/dL (2.5-4.5); Triglycerides 130 mg/dL (<150); Uric Acid 2.3 mg/dL (2.5-8.0)
[2020-12-13] MEDS: HEPARIN 5,000 UNIT/ML VIAL SQ SCH ×2 (09:15→20:10)
[2020-12-13] MEDS: MULTIVIT,THER IRON,CA,FA & MIN 1 TABLET PO SCH (09:16)
[2020-12-13] MEDS: 0.9 % SODIUM CHLORIDE 250 ML IV SCH ×4 (10:38→23:12)
[2020-12-13] MEDS: ASPIRIN 81 MG TAB.CHEW PO SCH (20:08)
[2020-12-13] MEDS: ATORVASTATIN 40 MG TABLET PO SCH (20:09)
[2020-12-13] MEDS: PREGABALIN 150 MG CAPSULE PO SCH (20:09)
[2020-12-13] MEDS: NORTRIPTYLINE 10 MG CAPSULE PO SCH (20:09)
[2020-12-13] MEDS: SENNOSIDES/DOCUSATE SODIUM 1 TAB TABLET PO SCH (20:10)
[2020-12-14] MEDS: PIPERACILLIN SODIUM/TAZOBACTAM 3.375 GM in DEXTROSE 5% IN WATER 50 ML IV SCH (06:03)
[2020-12-14] MEDS: 0.9 % SODIUM CHLORIDE 10 ML SYRINGE IV SCH (06:04)
[2020-12-14 06:35] LABS: Basophils # (Auto) 0.02 K/mcL (0.00-0.20); Basophils % (Auto) 0.3 % (0.0-2.0); Eosinophils # (Auto) 0.16 K/mcL (0.00-0.70); Eosinophils % (Auto) 2.7 % (0.0-7.0); Hematocrit 36.4 % (41.0-55.0); Hemoglobin 11.7 g/dL (13.5-16.5); Lymphocytes # (Auto) 1.43 K/mcL (1.50-4.80); Lymphocytes % (Auto) 23.9 % (15.0-49.0); Mean Cell Volume 94.8 fL (80.0-100.0); Mean Corpuscular HGB Conc 32.1 g/dL (31.0-36.0); Mean Platelet Volume 10.8 fL (7.4-10.4); Monocytes # (Auto) 0.55 K/mcL (0.10-0.90); Monocytes % (Auto) 9.2 % (1.0-12.0); Neutrophils % (Auto) 63.9 % (38.0-78.0); Platelet Count 183 K/mcL (140-440); RBC 3.84 M/mcL (4.50-5.90); Red Cell Distribution Width 12.5 % (11.5-14.5)
[2020-12-14] MEDS: PANTOPRAZOLE 40 MG TABLET PO SCH (06:41)
[2020-12-14] MEDS: ACETAMINOPHEN 325 MG TABLET PO PRN (06:42)
[2020-12-14 07:34] LABS: ALT/SGPT 24 U/L (<40); AST/SGOT 25 U/L (<40); Albumin 2.8 gm/dL (3.2-5.2); Albumin/Globulin Ratio 0.9 (1.0-2.3); Alkaline Phosphatase 85 U/L (39-117); Bilirubin,Direct < 0.2 mg/dL (<0.3); Bilirubin,Total 0.2 mg/dL (0.1-1.0); Blood Urea Nitrogen 19 mg/dL (8-23); Calcium 8.7 mg/dL (8.6-10.4); Carbon Dioxide 27 mmol/L (22-30); Chloride 107 mmol/L (96-108); Globulin 3.1 gm/dL (2.2-3.7); Glomerular Filtration Rate 61; Glucose 99 mg/dL (70-105); Lactate Dehydrogenase 179 U/L (135-225); Phosphorous 3.3 mg/dL (2.5-4.5); Triglycerides 141 mg/dL (<150); Uric Acid 2.4 mg/dL (2.5-8.0)
[2020-12-14] MEDS: MULTIVIT,THER IRON,CA,FA & MIN 1 TABLET PO SCH (08:46)
[2020-12-14] MEDS: HEPARIN 5,000 UNIT/ML VIAL SQ SCH (08:46)
[2020-12-14] MEDS: POTASSIUM CHLORIDE 20 MEQ PACKET PO PRN (08:47)
--- NOTE | 2020-12-14 10:51 | Internal Med Progress Note ---
SUBJECTIVE Subjective Patient information: Note initiated : 12/13/20 at 11:49 am Service Date, if different from initiated Date: [] Patient: Ricardo Romano a 85 y/o M admitted on 12/11/20 for DIZZINESS. Chief Complaint: [] Interval history: Mr. Romano is a 85 year old M with history of chronic pain/HTN/GERD/neuropathy who presented to the ER following an episode of dizziness while getting into his truck leading to fall. He subsequently pr esents to the ER for evaluation. Patient had a similar episode in October that was associated with intense nausea however following a negative work-up he was discharged. During today's evaluation the ER work-up was consistent with fever/leukocytosis and a concern was raised about sepsis. Patient blood pressure on presentation was mid 80s and was started on aggressive crystalloid/antibiotics after cultures were drawn. CT chest abdomen pelvis was unremarkable except for possible acalculous cholecystitis. Subsequently hospital service was consulted for admission. At the time of my evaluation patient is alert and oriented. He endorses history as above. Denies taking new medications. He is currently on 3 different antihypertensives but denies postural dizziness or chest palpitation tearing headache or seizure-like episode. He denies losing consciousness. He further denies dysuria, diarrhea, dyspepsia or prior similar episodes. He also denies sick contacts or flulike symptoms 12/12-patient clinically improving. Hypotension resolved. White count downtrending. On antibiotic coverage. No clear source despite aggressive investigation during CT/abdominal ultrasound. E. coli on blood culture. COVID- 19 negative. Fever defervesced. Denies lightheadedness or dizziness. Luis erating diet. Ongoing physical therapy. Anticipate discharge in 24 to 48 hours pending clinical improvement on antibiotics for E. coli coverage. 12/13-E. coli on culture. Continue antibiotic. Likely discharge in 24 hours based on sensitivities. Fever defervesced. Likely source prostatitis. Re commend total of 6 weeks of antibiotics once sensitivities reviewed. Follow-up with urology as outpatient on discharge. Constitutional Vitals: Vital Signs Temp Pulse Resp BP Pulse Ox 97.4 F 66 18 141/92 95 12/14/20 06:29 12/14/20 07:03 12/14/20 07:03 12/14/20 06:29 12/14/20 07:03 Period Temp Pulse Resp BP Sys/Hoffman Pulse Ox Last 24 Hr 97.1 F-98.5 F 63-76 16-18 125-154/75-92 92-96 Intake and Output 12/13/20 12/14/20 12/14/20 21:59 05:59 13:59 Intake Total 390 100 290 Output Total 175 175 300 Balance 215 -75 -10 Weight 84.822 kg alert and oriented Nonlabored breathing Nontender abdomen No anxiety Intake & Output: Intake & Output 12/13/20 12/14/20 12/14/20 21:59 05:59 13:59 Intake Total 390 100 290 Output Total 175 175 300 Balance 215 -75 -10 Weight 84.822 kg Intake: IV 50 50 50 Zosyn 3.375 gm In Dextrose 5% 50 50 50 in Water 50 ml @ 100 mls/hr IV Q6H [facility] Rx#:[id number] Oral 340 50 240 Output: Void Amount 175 175 300 Other: Meal Dinner Breakfast Percent of Meal Consumed 100% 100% Feeding Ability Independent Independent Urine Appearance Clear Clear Clear Urine Color Pale Pale Bright Yellow Stool Consistency Loose OBJ DATA Labs CBC & Chem 7: 12/14/20 05:15 12/14/20 05:15 Labs: Abnormal Lab Results 12/14/20 12/14/20 12/13/20 05:15 05:15 05:34 RBC 3.84 L Hgb 11.7 L Hct 36.4 L Plt Count MPV 10.8 H [place]wey % (Auto) Lymph # (Auto) 1.43 L [place] # (Auto) Anion Gap 6.0 L BUN Uric Acid 2.4 L 2.3 L Calcium 8.4 L Total Protein 5.5 L Albumin 2.8 L 2.8 L Albumin/Globulin Ratio 0.9 L 12/13/20 12/12/20 12/12/20 05:34 05:08 05:08 RBC 3.69 L 3.48 L Hgb 11.4 L 10.9 L Hct 34.8 L 33.9 L Plt Count 131 L MPV 10.9 H 11.0 H [place] % (Auto) 12.2 H Lymph # (Auto) 1.45 L [place] # (Auto) 1.11 H Anion Gap BUN 25 H Uric Acid 2.4 L Calcium 8.0 L Total Protein 5.1 L Albumin 2.8 L Albumin/Globulin Ratio Meds: Medications Acetaminophen (Tylenol) 650 mg PO Q4-6HP PRN; Protocol PRN Reason: Per Pain Protocol/Fever > 101 Last Admin: 12/14/20 06:42 Dose: 650 mg Documented by: Aspirin (Aspirin) 81 mg PO QPM [facility] Last Admin: 12/13/20 20:08 Dose: 81 mg Documented by: Atorvastatin Calcium (Lipitor) 80 mg PO HS [facility] Last Admin: 12/13/20 20:09 Dose: 80 mg Documented by: Bisacodyl (Dulcolax) 10 mg [place] Q2-3DAYS PRN PRN Reason: Constipation Finasteride (Proscar) 5 mg PO Q2-3DAYS [facility] Heparin Sodium (Porcine) (Heparin) 5,000 unit SQ Q12 [facility] Last Admin: 12/14/20 08:46 Dose: 5,000 unit Documented by: Hydromorphone HCl (Dilaudid) 0.25 - 0.5 mg IV Q4HP PRN; Protocol PRN Reason: Per Pain Protocol Sodium Chloride (Sodium Chloride 0.9%) 250 mls @ 20 mls/hr IV .[id number] [facility] Last Admin: 12/13/20 23:12 Dose: Not Given Documented by: Acetaminophen (Ofirmev) 650 mg in 65 mls @ 130 mls/hr IV Q6HP PRN; Protocol PRN Reason: Per Pain Protocol/Fever > 101 Magnesium Sulfate (Magnesium Sulfate) 2 gm in 50 mls @ 50 mls/hr IV UD PRN PRN Reason: MG = or < 1.7 Piperacillin Sod/Tazobactam (Sod 3.375 gm/ Dextrose) 50 mls @ 100 mls/hr IV Q6H [facility]; Protocol Last Infusion: 12/14/20 06:33 Dose: Infused Documented by: Potassium Chloride 40 meq/ (Dextrose) 520 mls @ 130 mls/hr IV UD PRN PRN Reason: K+ = or < 3.5 Sodium Chloride (Sodium Chloride 0.9%) 250 mls @ 20 mls/hr IV .[id number] [facility] Last Admin: 12/13/20 23:12 Dose: Not Given Documented by: Iron Carb/Multivit/[employer]/Folic Acid (Multivitamin W/Minerals) 1 tab PO DAILY [facility] Last Admin: 12/14/20 08:46 Dose: 1 tab Documented by: Melatonin (Melatonin 3mg Tablet) 3 mg PO HSP PRN PRN Reason: Insomnia Naproxen (Naprosyn) 250 mg PO DAILYP PRN PRN Reason: Pain Nitroglycerin (Nitrostat) 0.4 mg SL Q5M PRN PRN Reason: Chest Pain Nortriptyline HCl (Pamelor) 10 mg PO QHS [facility] Last Admin: 12/13/20 20:09 Dose: 10 mg Documented by: Ondansetron HCl (Zofran Odt) 4 mg SL Q4-6HP PRN; Protocol PRN Reason: Nausea And Vomiting Last Admin: 12/12/20 13:11 Dose: 4 mg Documented by: Ondansetron HCl (Zofran) 4 mg IV Q4-6HP PRN; Protocol PRN Reason: Nausea And Vomiting Pantoprazole Sodium (Protonix) 40 mg PO QAMAC [facility] Last Admin: 12/14/20 06:41 Dose: 40 mg Documented by: Polyethylene Glycol (Miralax) 17 gm PO DAILYP PRN PRN Reason: Constipation Potassium Chloride (Klor-Con) 40 meq PO DAILYP PRN PRN Reason: K+ < 3.5 Last Admin: 12/14/20 08:47 Dose: 40 meq Documented by: Pregabalin (Lyrica) 150 mg PO QHS [facility] Last Admin: 12/13/20 20:09 Dose: 150 mg Documented by: Senna/Docusate Sodium (Senna Plus Tablet) 1 tab PO [facility] Last Admin: 12/13/20 20:10 Dose: Not Given Documented by: Sodium Chloride (Saline Flush) 10 ml IV Q8 [facility] Last Admin: 12/14/20 06:04 Dose: 10 ml Documented by: A/P Narrative A/P Narrative: * E. coli bacteremia- likely prostatitis. Continue on empiric antibiotic including Zosyn until sensitivities available. Recommend total 6 weeks antibiotics. * Sepsis secondary to E. coli bacteremia. Clinically improved with management per guidelines. White count down to 9.1 from 14.7. * Fall secondary to weakness and lightheadedness secondary to sepsis related hypotension. No evidence of arrhythmia, orthostatics resolved, echo EF 60% aortic valve unremarkable * History of hypertension -recommend lowering dose of antihypertensives as patient remains normotensive * Possible acalculous cholecystitis-US gallbladder negative for acute process. * Neuropathy continue Lyrica * Hyperlipidemia continue statin * Full code * Prophylaxis Heparin Plan * Continue antibiotic until sensitivities available, recommend 6 weeks total treatment * Hold antihypertensives * PT OT nutrition support * Pre-existing medical condition management home meds Time Spent With Patient Time: Total time spent is greater than 50% in coordination of care (as documented) at patient's floor/unit and/or counseling patient: QUALITY VTE Deep Vein Thrombosis/Pulmonary Embolism Present on Admission: No
--- NOTE | 2020-12-14 11:01 | Discharge Summary ---
Discharge Provider Provider Patient information: Note initiated : 12/14/20 at 10:59 am Service Date, if different from initiated Date: [] Patient: Ricardo Romano a 85 y/o M admitted on 12/11/20 for DIZZINESS. Chief Complaint: [ Discharge diagnosis * E. coli bacteremia- likely source prostatitis. Pansensitive. Continue additional 6 weeks oral ciprofloxacin * Sepsis secondary to E. coli bacteremia. Clinically resolved. * Dizziness and fall-likely secondary to sepsis and antihypertensives use. Clinically resolved * Fall secondary to weakness and lightheadedness secondary to sepsis related hypotension. No evidence of arrhythmia, orthostatics resolved, echo EF 60% aortic valve unremarkable * History of hypertension -have remained normotensive despite off antihypertensives during hospitalization. Recommend discontinuation of losartan/half dose amlodipine until follow-up with primary care physician and gradual titration of medications with blood pressure. * Neuropathy continue Lyrica * Hyperlipidemia continue statin Brief hospital course Mr. Romano is a 85 year old M with history of chronic pain/HTN/GERD/neuropathy who presented to the ER following an episode of dizziness while getting into his truck leading to fall. He subsequently presents to the ER for evaluation. Patient had a similar episode in October that was associated with intense nausea however following a negative work-up he was discharged. During today's evaluation the ER work-up was consistent with fever/leukocytosis and a concern was raised about sepsis. Patient blood pressure on presentation was mid 80s and was started on aggressive crystalloid/antibiotics after cultures were drawn. CT chest abdomen pelvis was unremarkable except for possible acalculous cholecystitis. Subsequently hospital service was consulted for admission. At the time of my evaluation patient is alert and oriented. He endorses history as above. Denies taking new medications. He is currently on 3 different antihypertensives but denies postural dizziness or chest palpitation tearing headache or seizure-like episode. He denies losing consciousness. He further denies dysuria, diarrhea, dyspepsia or prior similar episodes. He also denies sick contacts or flulike symptoms 12/12-patient clinically improving. Hypotension resolved. White count downtrending. On antibiotic coverage. No clear source despite aggressive investigation during CT/abdominal ultrasound. E. coli on blood culture. COVID- 19 negative. Fever defervesced. Denies lightheadedness or dizziness. Tolerating diet. Ongoing physical therapy. Anticipate discharge in 24 to 48 hours pending clinical improvement on antibiotics for E. coli coverage. 12/13-E. coli on culture. Continue antibiotic. Likely discharge in 24 hours based on sensitivities. Fever defervesced. Likely source prostatitis. Recommend total of 6 weeks of antibiotics once sensitivities reviewed. Follow- up with urology as outpatient on discharge. 12/14-patient doing well. No overnight events. No fever chills. Discharging on 6 weeks of oral ciprofloxacin/half dose amlodipine and discontinuation of losartan until follow-up with PCP. Patient has been normotensive during hospitalization despite being off antihypertensives. Prior to arrival to the hospital patient also experienced syncopal episode due to hypotension. will need outpatient titration of antihypertensives. Date of admission: 12/11/20 01:48 Discharge date: 12/14/20 Primary care physician: Ricardo Ochoa Consults: 12/11/20 Consult to Physician [CONS] Stat Comment: Consulting Provider: Jorge L Dewitt Reason For Exam: Physician to Consult Discharge Meds Discharge Medications Home Medications multivitamin 1 tab-cap PO QDAY 11/02/15 [History Confirmed 12/11/20 Last Taken 12/10/20] naproxen sodium 220 mg PO QDAY 03/05/16 [History Confirmed 12/11/20 Last Taken 12/10/20 17:00] nortriptyline 10 mg capsule 10 mg PO QHS #90 cap 01/18/18 [Rx Confirmed 12/11/20 Last Taken 12/09/20 17:00] nitroglycerin 0.4 mg sublingual tablet 0.4 mg SUBLINGUAL Q5-15MIN PRN #30 tab 01/27/18 [Rx Confirmed 12/11/20 Last Taken 08/30/12] pantoprazole 40 mg tablet,delayed release 40 mg PO QAM #90 tab 01/27/18 [Rx Confirmed 12/11/20 Last Taken 12/10/20 07:00] aspirin 81 mg PO QPM 12/11/20 [History Confirmed 12/11/20 Last Taken 12/10/20 17:00] atorvastatin 80 mg PO QDAY 12/11/20 [History Confirmed 12/11/20 Last Taken Unknown] carvedilol 25 mg PO BID 12/11/20 [History Confirmed 12/11/20 Last Taken 12/10/20 17:00] finasteride [Proscar] 5 mg PO QDAY 12/11/20 [History Confirmed 12/11/20 Last Taken 12/08/20 07:00] hydralazine 25 mg PO PRN PRN 12/11/20 [History Confirmed 12/11/20 Last Taken Unknown] pregabalin [Lyrica] 150 mg PO QHS 12/11/20 [History Confirmed 12/11/20 Last Taken 12/10/20] amlodipine 5 mg PO QDAY #30 tab 12/14/20 [Rx Last Taken Unknown] ciprofloxacin HCl 500 mg PO BID #80 tab 12/14/20 [Rx Last Taken Unknown] COURSE Hospital Course Hospital course: . Discharge diagnosis: E. coli bacteremia/prostatitis Time Spent with Patient Time attestation: Total time spent providing and/or coordinating discharge services: EXAM Constitutional Vitals: Temp Pulse Resp BP Pulse Ox 97.4 F 66 18 141/92 95 12/14/20 06:29 12/14/20 07:03 12/14/20 07:03 12/14/20 06:29 12/14/20 07:03 Discharge Data Data Completed and Pending Labs on day of discharge: Labs from last 24 hours 12/14/20 12/14/20 05:15 05:15 WBC 6.0 RBC 3.84 L Hgb 11.7 L Hct 36.4 L MCV 94.8 MCH 30.5 MCHC 32.1 RDW 12.5 Plt Count 183 MPV 10.8 H Neut % (Auto) 63.9 Lymph % (Auto) 23.9 [place] % (Auto) 9.2 Eos % (Auto) 2.7 Baso % (Auto) 0.3 Lymph # (Auto) 1.43 L [place] # (Auto) 0.55 Eos # (Auto) 0.16 Baso # (Auto) 0.02 Absolute Neutrophils 3.83 Sodium 142 Potassium 3.5 Chloride 107 Carbon Dioxide 27 Anion Gap 8.0 BUN 19 Creatinine 1.1 GFR Calculation 61 Glucose 99 Uric Acid 2.4 L Calcium 8.7 Phosphorus 3.3 Magnesium 2.0 Total Bilirubin 0.2 Direct Bilirubin < 0.2 GGT 17 AST 25 ALT 24 Alkaline Phosphatase 85 Lactate Dehydrogenase 179 Total Protein 5.9 Albumin 2.8 L Globulin 3.1 Albumin/Globulin Ratio 0.9 L Triglycerides 141 Preliminary micro results at discharge 12/10/20 22:44 Blood Culture - Preliminary Blood Escherichia coli 12/10/20 22:38 Blood Culture - Preliminary Blood Discharge Plan Patient/Caregiver Discharge Instructions Activity: increase activity as tolerated Diet: Regular Diet Activity Restrictions/Additional Instructions: Continue ciprofloxacin for additional 6 weeks Follow-up PCP in 1 week Follow-up with urology in 2 weeks for evaluation of prostatitis PCP to closely optimize antihypertensives based on response. Patient experienced syncopal episode due to hypotension and has been normotensive during hospitalization off antihypertensives. At this time patient was advised to discontinue losartan/lower amlodipine to 5 mg and continue metoprolol at home dose. Dose will need titrated by PCP Return to ER if worsening fever chills abdominal pain Prescriptions: New amlodipine 5 mg tablet 5 mg PO QDAY Qty: 30 RF: 0 ciprofloxacin HCl 500 mg tablet 500 mg PO BID Qty: 80 RF: 0 Continued nortriptyline 10 mg capsule 10 mg PO QHS Qty: 90 RF: 3 multivitamin capsule 1 tab-cap PO QDAY RF: 0 pantoprazole 40 mg tablet,delayed release (DR/EC) 40 mg PO QAM Qty: 90 RF: 3 nitroglycerin 0.4 mg tablet, sublingual 0.4 mg SUBLINGUAL Q5-15MIN PRN (Reason: Chest Pain) Qty: 30 RF: 12 naproxen sodium 220 MG tablet 220 mg PO QDAY RF: 0 atorvastatin 80 mg tablet 80 mg PO QDAY RF: 0 aspirin 81 mg tablet,delayed release (DR/EC) 81 mg PO QPM RF: 0 finasteride [Proscar] 5 mg tablet 5 mg PO QDAY RF: 0 pregabalin [Lyrica] 150 mg Capsule 150 mg PO QHS RF: 0 carvedilol 25 mg Tablet 25 mg PO BID RF: 0 hydralazine 25 mg tablet 25 mg PO PRN PRN (Reason: Hypertension) RF: 0 Discontinued amlodipine 10 mg tablet 10 mg PO QDAY RF: 0 losartan 100 mg tablet 100 mg PO QDAY RF: 0 Follow Up Plan Patient Disposition: Home, Self-Care Prognosis: Fair Rehab Potential: Fair I certify that the patient requires SNF services: No Overall status at discharge: patient is progressing back to baseline Discharge Orders: Discharge Order (Routine); Ordered 12/14/20 Ordered By: Jorge L MCLEOD VTE Deep Vein Thrombosis/Pulmonary Embolism Present on Admission: No
== END 2020-12-14 12:15 | disposition home or self-care (01) | DRG 872 ==
LOC: ED 18:18 → ICU 12-11 01:48 → MEDSUR 12-12 17:30
PROVIDERS: ADMIT Internal Medicine; ATTEND Internal Medicine

== ENCOUNTER 2021-01-08 19:54 | Inpatient (IN) ==
[2021-01-08] MEDS ORDERED: LACTATED RINGERS 1,000 ML IV SCH (20:15)
--- NOTE | 2021-01-08 20:19 | Emergency Department Note ---
SOB HPI General Chief Complaint: Shortness of Breath/Dyspnea Stated Complaint: fever, SOB, hypoxia at home Time Seen by Provider: 01/08/21 20:08 Source: patient and RN notes reviewed Mode of arrival: ambulatory Limitations: no limitations History of Present Illness HPI Narrative: Narrative: This patient has been ill for about 10 days and was tested positive for Covid last night when he was seen here and apparently diagnosed with a UTI and started on antibiotics for that. At home his O2 sats were low according to family and is about 91% here on room air. He does have a fever here. In general he just feels poorly. Related Data Home Medications Medication Instructions Recorded Confirmed multivitamin 1 tab-cap PO QDAY 11/02/15 01/09/21 naproxen sodium 220 mg PO DAILYP PRN 03/05/16 01/09/21 aspirin 81 mg PO DAILY@1700 12/11/20 01/09/21 atorvastatin 80 mg PO DAILY@17012/11/20 01/09/21 carvedilol 25 mg PO BID@169912/11/20 01/09/21 finasteride [Proscar] 5 mg PO QDAY 12/11/20 01/09/21 hydralazine 25 mg PO PRN PRN 12/11/20 01/09/21 pregabalin [Lyrica] 150 mg PO DAILY 12/11/20 01/09/21 amlodipine 10 mg PO DAILY@1700 01/08/21 01/09/21 valsartan 160 mg PO DAILY@1700 01/08/21 01/09/21 acetaminophen [Tylenol] 650 mg PO Q6HP PRN 01/09/21 01/09/21 ciprofloxacin HCl 500 mg PO BID@17001/09/21 01/09/21 Previous Rx's Medication Instructions Recorded nortriptyline 10 mg capsule 10 mg PO QHS #90 cap 01/18/18 nitroglycerin 0.4 mg sublingual 0.4 mg SUBLINGUAL Q5-15MIN PRN #30 01/27/18 tablet tab pantoprazole 40 mg tablet,delayed 40 mg PO QAM #90 tab 01/27/18 release Allergies Allergy/AdvReac Type Severity Reaction Status Date / Time latex Allergy Severe Difficulty Verified 01/08/21 19:58 Breathing Sulfa (Sulfonamide Allergy Mild Hives Verified 01/08/21 19:58 Antibiotics) niacin AdvReac Mild Flushing Verified 01/08/21 19:58 [From Niaspan Extended-Release] sulfasalazine AdvReac Mild Dizziness Verified 01/08/21 19:58 Review of Systems ROS ROS Narrative: Narrative: All systems ED: reviewed and negative except as stated. [facility] Narrative Patient History Narrative: Narrative: Medical/Surgical/Family History All Active Problems (Updated 01/09/21 @ 06:42 by Edwin Cuellar MD) Nausea and vomiting (Acute) Sepsis (Acute) Hematuria (Acute) Renal cyst (Acute) COVID-19 (Acute) Pneumonia due to 2019 novel coronavirus (Acute) History of myocardial infarction (Acute) Carpal tunnel syndrome on right (Chronic) Left shoulder pain (Chronic) Radiculopathy, lumbar region (Chronic) Spinal stenosis, lumbar region with neurogenic claudication (Chronic) Chronic pain (Chronic) Low back pain (Chronic) Radiculopathy, lumbosacral region (Chronic) Pain in left hip (Chronic) Bursitis of left shoulder (Chronic) Bursitis of right shoulder (Chronic) Pain of right hip joint (Chronic) Hypoxia (Acute) Post surgical complication (Acute) Spinal stenosis at L4-L5 level (Chronic) Lumbago without sciatica (Chronic) 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) Hx of repair of rotator cuff (Chronic) Essential hypertension (Chronic) Dyslipidemia (Chronic) 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) History of colonic polyps (Chronic) Chronic ischemic heart disease (Chronic) Benign localized prostatic hyperplasia without lower urinary tract symptoms (LUTS) (Chronic) 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) Medical History (Updated 01/09/21 @ 06:42 by Edwin Cuellar MD) 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) Dr Morrison Benign localized prostatic hyperplasia without lower urinary tract symptoms (LUTS) (Chronic) BPH with urinary obstruction (Chronic) Bursitis of left shoulder (Chronic) Bursitis of right shoulder (Chronic) Carpal tunnel syndrome on right (Chronic) Chronic ischemic heart disease (Chronic) Chronic pain (Chronic) Closed fracture of sternum (Resolved) 2007 Closed fracture of tibia and fibula (Resolved) 2007 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) 09/04/14 Dr Morrison - repeat stenting procedure Dyslipidemia (Chronic) Essential hypertension (Chronic) Hematuria (Inactive) History of colonic polyps (Chronic) History of myocardial infarction (Acute) X2 Hypotension (Resolved 09/04/14) Dr Morrison Iron deficiency anemia due to chronic blood loss (Resolved) Left shoulder pain (Chronic) Low back pain (Chronic) Nonulcer dyspepsia (Chronic) Pain in left hip (Chronic) Pain of right hip joint (Chronic) Radiculopathy, lumbar region (Chronic) Radiculopathy, lumbosacral region (Chronic) Rib contusion (Resolved) 2007 Spinal stenosis, lumbar region with neurogenic claudication (Chronic) Urinary tract infection (Resolved) Urinary tract infection (Inactive) Surgical History (Updated 11/06/20 @ 13:42 by Tyler Alvarez DO) History of colonoscopy (Chronic 12/26/15) History of coronary artery stent placement (Inactive) 1996, repeat 2013 History of endoscopy (Inactive 01/08/16) Caspule endoscopy History of esophagogastroduodenoscopy (Inactive 12/15/15) History of photovaporization of prostate (Acute) History of surgery (Acute) Hip Joint Injection Lt. w/o sed 06/18/202006/18 Hip Joint Injection Rt. w/o sed 06/08/202011/16 Hip Joint Injection Lt. w/o sed 11/04/201809/16 MILD L2-3, L3-4 w/ sed 09/17/1803/17 TF FARIDA #3 Right L4-5 w/o sed 03/19/201801/17 LESI #2 L3-4 w/o sed 01/19/1812/17 LESI #1 L3-4 w/o sed 12/23/2017 Hx of cataract surgery (Resolved) 2004 Hx of lumbosacral spine surgery (Inactive) and epidural injections post op Hx of repair of rotator cuff (Chronic) Previous back surgery (Resolved) 1988 Family History Unknown Cardiac disease Social History Smoking Status: Never smoker Alcohol Intake Frequency: does not drink Substance Use: does not use Exam Narrative Narrative: Narrative: General Limitations: no limitations Head Head: Present atraumatic, normocephalic and normal inspection Eye Eye: Present normal appearance and EOMI; Absent scleral icterus and conjunctival injection Neck Neck: Present normal inspection and full ROM Chest Chest: Present normal inspection and symmetric chest wall rise Respiratory Respiratory: Present normal lung sounds bilaterally; Absent respiratory distress, rales/crackles and wheezes Cardiovascular Cardiovascular: Present regular rate, normal rhythm and normal heart sounds Adbominal Abdominal: Present soft; Absent distention and tenderness Extremities Extremities: Present normal inspection and full ROM; Absent pedal edema and pretibial edema Neurological Neurological: Present alert Psychiatric Psychiatric: Present normal affect Skin Skin: Present warm (WNL) and dry; Absent diaphoresis Course Vital Signs Vital signs: Vital Signs Temperature 101.5 F H 01/08/21 19:55 Pulse Rate 80 01/08/21 19:55 Respiratory Rate 20 01/08/21 19:55 Blood Pressure 111/99 01/08/21 19:55 Pulse Oximetry (%) 92 01/08/21 19:55 Temperature 98.5 F 01/09/21 04:01 Pulse Rate 69 01/09/21 06:01 Respiratory Rate 21 01/09/21 06:01 Blood Pressure 92/59 01/09/21 06:01 Pulse Oximetry (%) 97 01/09/21 06:01 [facility] MDM Narrative Medical decision making narrative: Narrative: The patient is started D satting below 90 while in the emergency room so arrangements were made for admission to the hospital with Dr. Tidwell. We did give him Decadron remdesivir Rocephin and Zithromax. Lab Data Lab results reviewed: Yes I reviewed the patient's lab results. Lab results narrative: Lab work was unremarkable. Result diagrams: 01/09/21 04:54 01/09/21 04:53 Labs: Lab Results 01/08/21 01/08/21 01/08/21 Range/Units 20:33 20:33 20:33 WBC 5.9 (4.5-11.0) K/mcL RBC 3.88 L (4.50-5.90) M/mcL Hgb 11.9 L (13.5-16.5) g/dL Hct 35.5 L (41.0-55.0) % MCV 91.5 (80.0-100.0) fL MCH 30.7 (26.0-34.0) pg MCHC 33.5 (31.0-36.0) g/dL RDW 12.2 (11.5-14.5) % Plt Count 176 (140-440) K/mcL MPV 10.7 H (7.4-10.4) fL Neut % (Auto) 70.5 (38.0-78.0) % Lymph % (Auto) 17.4 (15.0-49.0) % [place] % (Auto) 11.6 (1.0-12.0) % Eos % (Auto) 0.3 (0.0-7.0) % Baso % (Auto) 0.2 (0.0-2.0) % Lymph # (Auto) 1.03 L (1.50-4.80) K/mcL [place] # (Auto) 0.69 (0.10-0.90) K/mcL Eos # (Auto) 0.02 (0.00-0.70) K/mcL Baso # (Auto) 0.01 (0.00-0.20) K/mcL Absolute Neutrophils 4.18 (1.80-8.00) K/mcL VBG Lactic Acid 0.9 (0.5-2.0) mmol/L Sodium 138 (133-145) mmol/L Potassium 3.5 (3.3-5.1) mmol/L Chloride 103 (96-108) mmol/L Carbon Dioxide 24 (22-30) mmol/L Anion Gap 11.0 (8.0-16.0) BUN 19 (8-23) mg/dL Creatinine 1.0 (0.7-1.2) mg/dL GFR Calculation 69 Glucose 120 H (70-105) mg/dL Calcium 8.7 (8.6-10.4) mg/dL Ferritin 187.9 (30.0-400.0) ng/mL Total Bilirubin 0.5 (0.1-1.0) mg/dL AST 26 (<40) U/L ALT 28 (<40) U/L Alkaline Phosphatase 91 (39-117) U/L C-Reactive Protein 3.50 H (0.03-0.80) mg/dL NT-Pro-B Natriuret Pep 146.1 (<450.0) pg/mL Total Protein 6.4 (5.9-8.4) gm/dL Albumin 3.6 (3.2-5.2) gm/dL Globulin 2.8 (2.2-3.7) gm/dL Albumin/Globulin Ratio 1.3 (1.0-2.3) Urine Color Urine Appearance (Clear) Urine pH (5.0-9.0) Ur Specific [place] (1.000-1.035) Urine Protein (Negative) mg/dL Urine Glucose (UA) (Negative) mg/dL Urine Ketones (Negative) mg/dL Urine Occult Blood (Negative) mg/dL Urine Nitrate (Negative) Urine Bilirubin (Negative) mg/dL Urine Urobilinogen mg/dL Ur Leukocyte Esterase (Negative) /ug Urine RBC (0-3) /hpf Urine WBC (0-4) /hpf Ur Squamous Epith Cells (0-4) /hpf Urine Bacteria (0) /hpf Hyaline Casts (0-2) /lph Urine Mucus (None) /hpf Ur Culture Indicated? 01/08/21 Range/Units 20:40 WBC (4.5-11.0) K/mcL RBC (4.50-5.90) M/mcL Hgb (13.5-16.5) g/dL Hct (41.0-55.0) % MCV (80.0-100.0) fL MCH (26.0-34.0) pg MCHC (31.0-36.0) g/dL RDW (11.5-14.5) % Plt Count (140-440) K/mcL MPV (7.4-10.4) fL Neut % (Auto) (38.0-78.0) % Lymph % (Auto) (15.0-49.0) % [place] % (Auto) (1.0-12.0) % Eos % (Auto) (0.0-7.0) % Baso % (Auto) (0.0-2.0) % Lymph # (Auto) (1.50-4.80) K/mcL [place] # (Auto) (0.10-0.90) K/mcL Eos # (Auto) (0.00-0.70) K/mcL Baso # (Auto) (0.00-0.20) K/mcL Absolute Neutrophils (1.80-8.00) K/mcL VBG Lactic Acid (0.5-2.0) mmol/L Sodium (133-145) mmol/L Potassium (3.3-5.1) mmol/L Chloride (96-108) mmol/L Carbon Dioxide (22-30) mmol/L Anion Gap (8.0-16.0) BUN (8-23) mg/dL Creatinine (0.7-1.2) mg/dL GFR Calculation Glucose (70-105) mg/dL Calcium (8.6-10.4) mg/dL Ferritin (30.0-400.0) ng/mL Total Bilirubin (0.1-1.0) mg/dL AST (<40) U/L ALT (<40) U/L Alkaline Phosphatase (39-117) U/L C-Reactive Protein (0.03-0.80) mg/dL NT-Pro-B Natriuret Pep (<450.0) pg/mL Total Protein (5.9-8.4) gm/dL Albumin (3.2-5.2) gm/dL Globulin (2.2-3.7) gm/dL Albumin/Globulin Ratio (1.0-2.3) Urine Color Yellow Urine Appearance Clear (Clear) Urine pH 6.0 (5.0-9.0) Ur Specific [place] 1.023 (1.000-1.035) Urine Protein 30 A (Negative) mg/dL Urine Glucose (UA) Negative (Negative) mg/dL Urine Ketones Negative (Negative) mg/dL Urine Occult Blood Negative (Negative) mg/dL Urine Nitrate Negative (Negative) Urine Bilirubin Negative (Negative) mg/dL Urine Urobilinogen Negative mg/dL Ur Leukocyte Esterase Negative (Negative) /ug Urine RBC 12 H (0-3) /hpf Urine WBC 9 H (0-4) /hpf Ur Squamous Epith Cells < 1 (0-4) /hpf Urine Bacteria Few A (0) /hpf Hyaline Casts 8 H (0-2) /lph Urine Mucus Many A (None) /hpf Ur Culture Indicated? Yes Radiology Data Radiology results reviewed: Yes I reviewed the patient's radiology results. Radiology results narrative: Chest x-ray is read as consistent with Covid pneumonia Discharge Plan Patient/Caregiver Discharge Instructions Pt seen by SNUFF BLENDER/PA only: No Clinical Impression: Pneumonia due to 2019 novel coronavirus Patient Disposition: Xfer As Inpt ([facility]) Discharge Date/Time: 01/08/21 23:21
[2021-01-08] MEDS ORDERED: ACETAMINOPHEN 325 MG TABLET PO ONE (20:34)
[2021-01-08 21:27] LABS: Basophils # (Auto) 0.01 K/mcL (0.00-0.20); Basophils % (Auto) 0.2 % (0.0-2.0); Eosinophils # (Auto) 0.02 K/mcL (0.00-0.70); Eosinophils % (Auto) 0.3 % (0.0-7.0); Hematocrit 35.5 % (41.0-55.0); Hemoglobin 11.9 g/dL (13.5-16.5); Lymphocytes # (Auto) 1.03 K/mcL (1.50-4.80); Lymphocytes % (Auto) 17.4 % (15.0-49.0); Mean Cell Volume 91.5 fL (80.0-100.0); Mean Corpuscular HGB Conc 33.5 g/dL (31.0-36.0); Mean Platelet Volume 10.7 fL (7.4-10.4); Monocytes # (Auto) 0.69 K/mcL (0.10-0.90); Monocytes % (Auto) 11.6 % (1.0-12.0); Neutrophils % (Auto) 70.5 % (38.0-78.0); Platelet Count 176 K/mcL (140-440); RBC 3.88 M/mcL (4.50-5.90); Red Cell Distribution Width 12.2 % (11.5-14.5); WBC 5.9 K/mcL (4.5-11.0)
[2021-01-08 21:29] LABS: Appearance,Urine CLEAR (Clear); Bacteria,Urine FEW /hpf (0); Bilirubin,Urine Negative (Negative); Color,Urine YELLOW; Culture Indicated,Urine Yes; Glucose,Urine (UA) Negative (Negative); Ketones,Urine Negative (Negative); Leukocyte Esterase,Urine Negative /ug (Negative); Mucus,Urine MANY /hpf; Nitrate,Urine Negative (Negative); Protein,Urine 30 mg/dL (Negative); Specific Gravity,Urine 1.023 (1.000-1.035); Urine Blood Negative (Negative); Urine Hyaline Cast 8 /lph (0-2); Urine RBC 12 /hpf (0-3); Urine Squamous Epithelial Cell < 1 /hpf (0-4); Urine WBC 9 /hpf (0-4); Urobilinogen,Urine Negative
[2021-01-08] MEDS ORDERED: cefTRIAXone 1 GM VIAL IV ONE (21:39)
[2021-01-08] MEDS ORDERED: AZITHROMYCIN 500 MG in DEXTROSE 5% IN WATER 250 ML IV ONE (21:39)
[2021-01-08] MEDS ORDERED: DEXAMETHASONE 10 MG/ML VIAL IV ONE (21:39)
[2021-01-08 21:43] LABS: proBNP 146.1 pg/mL (<450.0)
--- NOTE | 2021-01-08 21:46 | Internal Med History&Physical ---
HPI History of Present Illness Patient information: Note initiated : 01/08/21 at 9:45 pm Service Date, if different from initiated Date: [] Patient: Ricardo Romano a 85 y/o M admitted on for fever, SOB, hypoxia at home. Chief Complaint: Shortness of breath History of present illness: Mr. Romano is a 85 year old M who was recently hospitalized with E. coli bacteremia from prostatitis and was discharged on the 14 December and has been continuing ciprofloxacin who presents to the ER with worsening shortness of breath over the last few days. 3 days ago his was diagnosed with Covid and he was asked by state health authorities for Covid which turned positive. He also has associated fever, weakness, malaise, fatigue. He presented to the ER for further evaluation. Initial work-up was consistent with bilateral pneumonia. Patient was started on remdesivir/dexamethasone/antibiotic coverage and subsequently hospital service was consulted. At the time of my evaluation patient is alert but anxious. Is currently on 4 L oxygen. He complains of persistent cough minimally productive but denies chest pain. He endorses to arthralgia myalgia but denies joint swelling, rash, headache, photophobia. Review of systems 10 point review system was performed and is negative except for ones discussed above PFSH PFSH All Active Problems (Updated 01/09/21 @ 06:42 by Edwin Cuellar MD) Nausea and vomiting (Acute) Sepsis (Acute) Hematuria (Acute) Renal cyst (Acute) COVID-19 (Acute) Pneumonia due to 2019 novel coronavirus (Acute) History of myocardial infarction (Acute) Carpal tunnel syndrome on right (Chronic) Left shoulder pain (Chronic) Radiculopathy, lumbar region (Chronic) Spinal stenosis, lumbar region with neurogenic claudication (Chronic) Chronic pain (Chronic) Low back pain (Chronic) Radiculopathy, lumbosacral region (Chronic) Pain in left hip (Chronic) Bursitis of left shoulder (Chronic) Bursitis of right shoulder (Chronic) Pain of right hip joint (Chronic) Hypoxia (Acute) Post surgical complication (Acute) Spinal stenosis at L4-L5 level (Chronic) Lumbago without sciatica (Chronic) 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) Hx of repair of rotator cuff (Chronic) Essential hypertension (Chronic) Dyslipidemia (Chronic) 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) History of colonic polyps (Chronic) Chronic ischemic heart disease (Chronic) Benign localized prostatic hyperplasia without lower urinary tract symptoms (LUTS) (Chronic) 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) Medical History (Updated 01/09/21 @ 06:42 by Edwin Cuellar MD) 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) Dr Morrison Benign localized prostatic hyperplasia without lower urinary tract symptoms (LUTS) (Chronic) BPH with urinary obstruction (Chronic) Bursitis of left shoulder (Chronic) Bursitis of right shoulder (Chronic) Carpal tunnel syndrome on right (Chronic) Chronic ischemic heart disease (Chronic) Chronic pain (Chronic) Closed fracture of sternum (Resolved) 2007 Closed fracture of tibia and fibula (Resolved) 2007 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) 09/04/14 Dr Morrison - repeat stenting procedure Dyslipidemia (Chronic) Essential hypertension (Chronic) Hematuria (Inactive) History of colonic polyps (Chronic) History of myocardial infarction (Acute) X2 Hypotension (Resolved 09/04/14) Dr Morrison Iron deficiency anemia due to chronic blood loss (Resolved) Left shoulder pain (Chronic) Low back pain (Chronic) Nonulcer dyspepsia (Chronic) Pain in left hip (Chronic) Pain of right hip joint (Chronic) Radiculopathy, lumbar region (Chronic) Radiculopathy, lumbosacral region (Chronic) Rib contusion (Resolved) 2007 Spinal stenosis, lumbar region with neurogenic claudication (Chronic) Urinary tract infection (Resolved) Urinary tract infection (Inactive) Surgical History (Updated 11/06/20 @ 13:42 by yTler Alvarez DO) History of colonoscopy (Chronic 12/26/15) History of coronary artery stent placement (Inactive) 1996, repeat 2013 History of endoscopy (Inactive 01/08/16) Caspule endoscopy History of esophagogastroduodenoscopy (Inactive 12/15/15) History of photovaporization of prostate (Acute) History of surgery (Acute) Hip Joint Injection Lt. w/o sed 06/18/202006/18 Hip Joint Injection Rt. w/o sed 06/08/202011/16 Hip Joint Injection Lt. w/o sed 11/04/201809/16 MILD L2-3, L3-4 w/ sed 09/17/1803/17 TF FARIDA #3 Right L4-5 w/o sed 03/19/201801/17 LESI #2 L3-4 w/o sed 01/19/1812/17 LESI #1 L3-4 w/o sed 12/23/2017 Hx of cataract surgery (Resolved) 2004 Hx of lumbosacral spine surgery (Inactive) and epidural injections post op Hx of repair of rotator cuff (Chronic) Previous back surgery (Resolved) 1988 Family History Unknown Cardiac disease Social History leisure activities: hunting, fishing and other physical activity: walking smoking status: Never smoker alcohol intake frequency: does not drink substance use type: does not use MEDS/ALLERGIES Home Medications and Allergies Home Medications Medication Instructions Recorded Confirmed Type multivitamin 1 tab-cap PO QDAY 11/02/15 01/09/21 History naproxen sodium 220 mg PO DAILYP PRN 03/05/16 01/09/21 History nortriptyline 10 mg capsule 10 mg PO QHS #90 cap 01/18/18 01/09/21 Rx nitroglycerin 0.4 mg sublingual 0.4 mg SUBLINGUAL Q5-15MIN PRN #30 01/27/18 01/09/21 Rx tablet tab pantoprazole 40 mg tablet,delayed 40 mg PO QAM #90 tab 01/27/18 01/09/21 Rx release aspirin 81 mg PO DAILY@169912/11/20 01/09/21 History atorvastatin 80 mg PO DAILY@169912/11/20 01/09/21 History carvedilol 25 mg PO BID@17012/11/20 01/09/21 History finasteride [Proscar] 5 mg PO QDAY 12/11/20 01/09/21 History hydralazine 25 mg PO PRN PRN 12/11/20 01/09/21 History pregabalin [Lyrica] 150 mg PO DAILY 12/11/20 01/09/21 History amlodipine 10 mg PO DAILY@1700 01/08/21 01/09/21 History valsartan 160 mg PO DAILY@0 01/08/21 01/09/21 History acetaminophen [Tylenol] 650 mg PO Q6HP PRN 01/09/21 01/09/21 History ciprofloxacin HCl 500 mg PO BID@1700 01/09/21 01/09/21 History Allergies Allergy/AdvReac Type Severity Reaction Status Date / Time latex Allergy Severe Difficulty Verified 01/08/21 19:58 Breathing Sulfa (Sulfonamide Allergy Mild Hives Verified 01/08/21 19:58 Antibiotics) niacin AdvReac Mild Flushing Verified 01/08/21 19:58 [From Niaspan Extended-Release] sulfasalazine AdvReac Mild Dizziness Verified 01/08/21 19:58 EXAM Constitutional Vitals: Temp Pulse Resp BP Pulse Ox 101.0 F H 67 20 94/62 91 01/08/21 20:41 01/08/21 21:31 01/08/21 19:55 01/08/21 21:31 01/08/21 21:31 labored breathing anxious on 4 L oxygen Alert oriented and cooperative Head normocephalic Oral cavity moist No ear nose discharge Eye movement symmetrical Rapid shallow breathing on 4 L Regular rhythm Nondistended nontender abdomen Lower extremity no cyanosis clubbing or joint swelling Skin no suspicious lesion Psych anxious no hallucination Neuro normal higher function DATA Data Completed and Pending Labs: Labs from last 24 hours 01/08/21 01/08/21 01/08/21 20:40 20:33 20:33 WBC RBC Hgb Hct MCV MCH MCHC RDW Plt Count MPV Neut % (Auto) Lymph % (Auto) Stephens % (Auto) Eos % (Auto) Baso % (Auto) Lymph # (Auto) Stephens # (Auto) Eos # (Auto) Baso # (Auto) Absolute Neutrophils VBG Lactic Acid 0.9 Sodium Pending Potassium Pending Chloride Pending Carbon Dioxide Pending Anion Gap Pending BUN Pending Creatinine Pending GFR Calculation Pending Glucose Pending Calcium Pending Ferritin Pending Total Bilirubin Pending AST Pending ALT Pending Alkaline Phosphatase Pending C-Reactive Protein Pending NT-Pro-B Natriuret Pep 146.1 Total Protein Pending Albumin Pending Globulin Pending Albumin/Globulin Ratio Pending Urine Color Yellow Urine Appearance Clear Urine pH 6.0 Ur Specific Dorr 1.023 Urine Protein 30 A Urine Glucose (UA) Negative Urine Ketones Negative Urine Occult Blood Negative Urine Nitrate Negative Urine Bilirubin Negative Urine Urobilinogen Negative Ur Leukocyte Esterase Negative Urine RBC 12 H Urine WBC 9 H Ur Squamous Epith Cells < 1 Urine Bacteria Few A Hyaline Casts 8 H Urine Mucus Many A Ur Culture Indicated? Yes 01/08/21 20:33 WBC 5.9 RBC 3.88 L Hgb 11.9 L Hct 35.5 L MCV 91.5 MCH 30.7 MCHC 33.5 RDW 12.2 Plt Count 176 MPV 10.7 H Neut % (Auto) 70.5 Lymph % (Auto) 17.4 Stephens % (Auto) 11.6 Eos % (Auto) 0.3 Baso % (Auto) 0.2 Lymph # (Auto) 1.03 L Stephens # (Auto) 0.69 Eos # (Auto) 0.02 Baso # (Auto) 0.01 Absolute Neutrophils 4.18 VBG Lactic Acid Sodium Potassium Chloride Carbon Dioxide Anion Gap BUN Creatinine GFR Calculation Glucose Calcium Ferritin Total Bilirubin AST ALT Alkaline Phosphatase C-Reactive Protein NT-Pro-B Natriuret Pep Total Protein Albumin Globulin Albumin/Globulin Ratio Urine Color Urine Appearance Urine pH Ur Specific Dorr Urine Protein Urine Glucose (UA) Urine Ketones Urine Occult Blood Urine Nitrate Urine Bilirubin Urine Urobilinogen Ur Leukocyte Esterase Urine RBC Urine WBC Ur Squamous Epith Cells Urine Bacteria Hyaline Casts Urine Mucus Ur Culture Indicated? A/P Narrative A/P Narrative: * COVID-19 pneumonia-PCU admission/initiate remdesivir/dexamethasone, thrombosis prophylaxis/coag and inflammatory markers, maintain COVID-19 precautions * Acute hypoxic respiratory failure secondary to Covid pneumonia. Continue with low flow oxygen/pulmonary toilet and transition to noninvasive mechanical ventilation if deteriorating status/worsening oxygenation on ABG/interval chest imaging. * Recent E. coli bacteremia continue coverage on Rocephin. * History neuropathy continue Lyrica * Hyperlipidemia continue statin * History of hypertension , currently normotensive. Hold amlodipine and Coreg * BPH on finasteride * Prophylaxis Heparin Plan * Inpatient PCU admission * Low flow O2, NIV if indicated or worsening Covid pneumonia * Serial imaging/ABG/coag inflammatory markers * Remdesivir/dexamethasone/empiric antibiotics/thrombosis prophylaxis * Pre-existing medical condition management home meds * Directed therapies/nutrition support/early mobilization * Discharge planning Time Spent With Patient Time: Total time spent is greater than 50% in coordination of care (as documented) at patient's floor/unit and/or counseling patient:
[2021-01-08 21:51] LABS: Ferritin 187.9 ng/mL (30.0-400.0)
[2021-01-08 22:02] LABS: ALT/SGPT 28 U/L (<40); AST/SGOT 26 U/L (<40); Albumin 3.6 gm/dL (3.2-5.2); Albumin/Globulin Ratio 1.3 (1.0-2.3); Alkaline Phosphatase 91 U/L (39-117); Bilirubin,Total 0.5 mg/dL (0.1-1.0); Blood Urea Nitrogen 19 mg/dL (8-23); Calcium 8.7 mg/dL (8.6-10.4); Carbon Dioxide 24 mmol/L (22-30); Chloride 103 mmol/L (96-108); Globulin 2.8 gm/dL (2.2-3.7); Glomerular Filtration Rate 69; Glucose 120 mg/dL (70-105)
[2021-01-08] MEDS ORDERED: LACTATED RINGERS 1,000 ML IV ONE (22:23)
[2021-01-08] MEDS ORDERED: REMDESIVIR 200 MG in 0.9 % SODIUM CHLORIDE 250 ML IV ONE (22:25)
[2021-01-08] MEDS ORDERED: 0.9 % SODIUM CHLORIDE 1,000 ML IV ONE (23:04)
[2021-01-08] MEDS ORDERED: POLYETHYLENE GLYCOL 3350 17 GM PACKET PO PRN (23:28)
[2021-01-08] MEDS ORDERED: ACETAMINOPHEN 650 MG/65 ML BAG IV PRN (23:28)
[2021-01-08] MEDS ORDERED: ALBUTEROL SULFATE 200 PUFF INHALER INH PRN (23:28)
[2021-01-08] MEDS ORDERED: MELATONIN 3 MG TABLET PO PRN (23:28)
[2021-01-08] MEDS ORDERED: ONDANSETRON 4 MG/2 ML VIAL IV PRN (23:28)
[2021-01-08] MEDS ORDERED: POTASSIUM CHLORIDE 20 MEQ PACKET PO PRN (23:28)
[2021-01-08] MEDS ORDERED: NEUTRA PHOS 1 PACKET PO PRN (23:28)
[2021-01-08] MEDS ORDERED: ONDANSETRON 4 MG ODT TABLET SL PRN (23:28)
[2021-01-08] MEDS ORDERED: MAGNESIUM SULFATE 2 GM/50 ML BAG IV PRN (23:28)
[2021-01-08] MEDS ORDERED: ACETAMINOPHEN 325 MG TABLET PO PRN (23:28)
[2021-01-08] MEDS ORDERED: REMDESIVIR 100 MG in 0.9 % SODIUM CHLORIDE 250 ML IV SCH (23:28)
[2021-01-08] MEDS ORDERED: POTASSIUM CHLORIDE 40 MEQ in DEXTROSE 5% IN WATER 500 ML IV PRN (23:28)
[2021-01-08] MEDS ORDERED: BISACODYL 10 MG SUPP.RECT PR PRN (23:28)
[2021-01-08] MEDS: AZITHROMYCIN 500 MG in DEXTROSE 5% IN WATER 250 ML IV SCH (23:41)
[2021-01-08] MEDS ORDERED: cefTRIAXone 1 GM VIAL ONE (23:42)
[2021-01-08] MEDS: 0.9 % SODIUM CHLORIDE 10 ML SYRINGE IV SCH (23:50)
[2021-01-08] MEDS: cefTRIAXone 2 GM in DEXTROSE 5% IN WATER 50 ML IV SCH (23:54)
[2021-01-08] MEDS ORDERED: MELATONIN 3 MG TABLET PO ONE (23:58)
[2021-01-09] MEDS ORDERED: 0.9 % SODIUM CHLORIDE 1,000 ML IV ONE (02:28)
[2021-01-09] MEDS: 0.9 % SODIUM CHLORIDE 10 ML SYRINGE IV SCH ×3 (05:43→20:53)
--- NOTE | 2021-01-09 05:58 | XRay Report ---
INDICATION: Hypoxia and dyspnea. Positive covid test TECHNIQUE: AP portable semiupright chest x-ray COMPARISON: Previous chest x-rays dated 12/13/2020 and 12/10/2020 FINDINGS: Lungs:There are patchy infiltrates in both lungs, right slightly worse in left. These are in the mid lungs and lower lungs bilaterally. Appearance is consistent with interstitial pneumonia and covid pneumonia is likely No parenchymal consolidation or mass. Heart, vascular:No significant cardiomegaly. Pulmonary vascularity is normal. No pulmonary edema or pulmonary congestion Mediastinum, joie:No mediastinal widening. No hilar mass Pleura:No pleural fluid. No pleural-based mass or calcification Skeletal:Negative. IMPRESSION: Bilateral pulmonary parenchymal infiltrates consistent with pneumonia. Covid pneumonia likely Interpreted and Authenticated by: Jb Rothman 01/09/21
[2021-01-09 06:11] LABS: Basophils # (Auto) 0 K/mcL (0.00-0.20); Basophils % (Auto) 0 % (0.0-2.0); Eosinophils # (Auto) 0 K/mcL (0.00-0.70); Eosinophils % (Auto) 0 % (0.0-7.0); Hematocrit 35.3 % (41.0-55.0); Hemoglobin 11.3 g/dL (13.5-16.5); Lymphocytes # (Auto) 0.57 K/mcL (1.50-4.80); Lymphocytes % (Auto) 13.2 % (15.0-49.0); Mean Cell Volume 92.4 fL (80.0-100.0); Mean Platelet Volume 10.8 fL (7.4-10.4); Monocytes # (Auto) 0.15 K/mcL (0.10-0.90); Monocytes % (Auto) 3.5 % (1.0-12.0); Neutrophils % (Auto) 83.3 % (38.0-78.0); Platelet Count 155 K/mcL (140-440); RBC 3.82 M/mcL (4.50-5.90); WBC 4.3 K/mcL (4.5-11.0)
[2021-01-09 06:26] LABS: ALT/SGPT 23 U/L (<40); AST/SGOT 23 U/L (<40); Albumin/Globulin Ratio 1.1 (1.0-2.3); Alkaline Phosphatase 82 U/L (39-117); Bilirubin,Direct < 0.2 mg/dL (<0.3); Bilirubin,Total 0.2 mg/dL (0.1-1.0); Blood Urea Nitrogen 18 mg/dL (8-23); Calcium 7.6 mg/dL (8.6-10.4); Carbon Dioxide 20 mmol/L (22-30); Chloride 107 mmol/L (96-108); Globulin 2.7 gm/dL (2.2-3.7); Glomerular Filtration Rate 78; Glucose 153 mg/dL (70-105); Lactate Dehydrogenase 147 U/L (135-225); Phosphorous 2.9 mg/dL (2.5-4.5); Triglycerides 54 mg/dL (<150); Uric Acid 4.4 mg/dL (2.5-8.0)
[2021-01-09] MEDS: DEXAMETHASONE 4 MG TABLET PO SCH (09:00)
[2021-01-09] MEDS ORDERED: hydrALAZINE 25 MG TABLET PO PRN (09:04)
[2021-01-09] MEDS ORDERED: ACETAMINOPHEN (PP) 325MG TABLET (#50) PO PRN (09:04)
[2021-01-09] MEDS: HEPARIN 5,000 UNIT/ML VIAL SQ SCH ×2 (09:22→20:48)
[2021-01-09] MEDS: DOCUSATE SODIUM 100 MG CAPSULE PO SCH ×2 (09:22→19:42)
[2021-01-09] MEDS: MULTIVIT,THER IRON,CA,FA & MIN 1 TABLET PO SCH (09:25)
[2021-01-09] MEDS ORDERED: NITROGLYCERIN 0.4 MG TAB.SUBL SL PRN (09:27)
[2021-01-09] MEDS ORDERED: NAPROXEN 250 MG TABLET PO PRN (09:27)
--- NOTE | 2021-01-09 11:53 | Internal Med Progress Note ---
SUBJECTIVE Subjective Patient information: Note initiated : 01/09/21 at 11:50 am Service Date, if different from initiated Date: [] Patient: Ricardo Romano a 85 y/o M admitted on 01/08/21 for fever, SOB, hypoxia at home. Chief Complaint: [] Interval history: History of present illness: Mr. Romano is a 85 year old M who was recently hospitalized with E. coli bacteremia from prostatitis and was discharged on the 14 December and has been continuing ciprofloxacin who presents to the ER with worsening shortness of breath over the last few days. 3 days ago his was diagnosed with Covid and he was asked by state health authorities for Covid which turned positive. He also has associated fever, weakness, malaise, fatigue. He presented to the ER for further evaluation. Initial work-up was consistent with bilateral pneumonia. Patient was started on remdesivir/dexamethasone/antibiotic coverage and subsequently hospital service was consulted. At the time of my evaluation patient is alert but anxious. Is currently on 4 L oxygen. He complains of persistent cough minimally productive but denies chest pain. He endorses to arthralgia myalgia but denies joint swelling, rash, headache, photophobia. 01/09-patient clinically improving. Currently on full dose oxygen. However improved shortness of breath. Continue remdesivir/dexamethasone/antibiotic coverage. Overnight hypotensives around 90s requiring crystalloid boluses. H old antihypertensives. Consistent with previous hospitalization wherein antihypertensive doses were reduced. Discontinue amlodipine, lower Coreg to half and resume with holding parameters. Constitutional Vitals: Vital Signs Temp Pulse Resp BP Pulse Ox 96.6 F L 72 21 109/86 98 01/09/21 08:34 01/09/21 10:21 01/09/21 10:21 01/09/21 10:21 01/09/21 10:21 Period Temp Pulse Resp BP Sys/Hoffman Pulse Ox Last 24 Hr 96.4 F-101.5 F 66-80 14-32 77-122/47-99 83-99 Intake and Output 01/08/21 01/09/21 01/09/21 21:59 05:59 13:59 Intake Total 3500 240 Output Total 625 150 Balance 2875 90 Weight 78.018 kg 80.195 kg Alert oriented Nonlabored breathing on 4 L oxygen. Nondistended abdomen No anxiety Intake & Output: Intake & Output 01/08/21 01/09/21 01/09/21 21:59 05:59 13:59 Intake Total 3500 240 Output Total 625 150 Balance 2875 90 Weight 78.018 kg 80.195 kg Intake: IV 3500 Sodium Chloride 0.9% 1,000 ml @ 1000 Wide Open IV BOLUS ONE Rx#: [id number] Zithromax 500 mg In Dextrose 5% 250 in Water 250 ml @ 250 mls/hr IV ONCE ONE Rx#:[id number] Lactated Ringers 1,000 ml @ 2000 Wide Open IV BOLUS ONE Rx#: [id number] Veklury 200 mg In Sodium 250 Chloride 0.9% 250 ml @ 500 mls/ hr IV ONCE ONE Rx#:[id number] Oral 240 Output: Void Amount 625 150 Other: Meal Breakfast Percent of Meal Consumed 100% Urine Appearance Clear Clear Urine Color Straw Urine Odor Normal Normal Stool Size Small Stool Color Brown # Bowel Movements 1 OBJ DATA Labs CBC & Chem 7: 01/09/21 04:54 01/09/21 04:53 Labs: Abnormal Lab Results 01/09/21 01/09/21 01/08/21 04:54 04:53 20:40 WBC 4.3 L RBC 3.82 L Hgb 11.3 L Hct 35.3 L MPV 10.8 H Neut % (Auto) 83.3 H Lymph % (Auto) 13.2 L Lymph # (Auto) 0.57 L Carbon Dioxide 20 L Glucose 153 H Calcium 7.6 L C-Reactive Protein Total Protein 5.7 L Albumin 3.0 L Urine Protein 30 A Urine RBC 12 H Urine WBC 9 H Urine Bacteria Few A Hyaline Casts 8 H Urine Mucus Many A 01/08/21 01/08/21 20:33 20:33 WBC RBC 3.88 L Hgb 11.9 L Hct 35.5 L MPV 10.7 H Neut % (Auto) Lymph % (Auto) Lymph # (Auto) 1.03 L Carbon Dioxide Glucose 120 H Calcium C-Reactive Protein 3.50 H Total Protein Albumin Urine Protein Urine RBC Urine WBC Urine Bacteria Hyaline Casts Urine Mucus Meds: Medications Acetaminophen (Tylenol) 650 mg PO Q4-6HP PRN; Protocol PRN Reason: Per Pain Protocol/Fever > 101 Albuterol Sulfate (Ventolin) 1 - 2 puff INH Q4HP PRN PRN Reason: Shortness Of Breath Amlodipine Besylate (Norvasc) 10 mg PO DAILY@1700 [facility] Aspirin (Aspirin) 81 mg PO DAILY@1700 [facility] Atorvastatin Calcium (Lipitor) 80 mg PO DAILY@1700 [facility] Bisacodyl (Dulcolax) 10 mg SD Q2-3DAYS PRN PRN Reason: Constipation Carvedilol (Coreg) 25 mg PO BIDCC [facility] Dexamethasone (Decadron) 6 mg PO DAILY [facility] Last Admin: 01/09/21 09:00 Dose: 6 mg Documented by: Docusate Sodium (Colace) 100 mg PO BID [facility] Last Admin: 01/09/21 09:22 Dose: 100 mg Documented by: Finasteride (Proscar) 5 mg PO QDAY [facility] Heparin Sodium (Porcine) (Heparin) 5,000 unit SQ Q12 [facility] Last Admin: 01/09/21 09:22 Dose: 5,000 unit Documented by: Hydralazine HCl (Apresoline) 25 mg PO DAILYP PRN PRN Reason: Hypertension Azithromycin 500 mg/ Dextrose 250 mls @ 250 mls/hr IV Q24H [facility]; Protocol Stop: 01/11/21 00:27 Last Admin: 01/08/21 23:41 Dose: Not Given Documented by: Potassium Chloride 40 meq/ (Dextrose) 520 mls @ 130 mls/hr IV UD PRN PRN Reason: K+ = or < 3.5 Acetaminophen (Ofirmev) 650 mg in 65 mls @ 130 mls/hr IV Q6HP PRN; Protocol PRN Reason: Per Pain Protocol/Fever > 101 Magnesium Sulfate (Magnesium Sulfate) 2 gm in 50 mls @ 50 mls/hr IV UD PRN PRN Reason: MG = or < 1.7 Ceftriaxone Sodium 2 gm/ (Dextrose) 50 mls @ 100 mls/hr IV Q24H [facility]; Protocol Last Admin: 01/08/21 23:54 Dose: Not Given Documented by: REMDESIVIR 100 mg/ Sodium (Chloride) 250 mls @ 500 mls/hr IV Q24H [facility] Stop: 01/12/21 18:29 Iron Carb/Multivit/Advertising Display Rotator/Folic Acid (Multivitamin W/Minerals) 1 tab PO DAILY [facility] Last Admin: 01/09/21 09:25 Dose: 1 tab Documented by: Losartan Potassium (Cozaar) 100 mg PO DAILY@1700 [facility] Melatonin (Melatonin 3mg Tablet) 3 mg PO HSP PRN PRN Reason: Insomnia Naproxen (Naprosyn) 250 mg PO DAILYP PRN PRN Reason: Pain, Mild Nitroglycerin (Nitrostat) 0.4 mg SL Q5M PRN PRN Reason: Chest Pain Nortriptyline HCl (Pamelor) 10 mg PO QHS [facility] Ondansetron HCl (Zofran Odt) 4 mg SL Q4-6HP PRN; Protocol PRN Reason: Nausea And Vomiting Ondansetron HCl (Zofran) 4 mg IV Q4-6HP PRN; Protocol PRN Reason: Nausea And Vomiting Pantoprazole Sodium (Protonix) 40 mg PO QAMAC [facility] Polyethylene Glycol (Miralax) 17 gm PO DAILYP PRN PRN Reason: Constipation Potassium Chloride (Klor-Con) 40 meq PO DAILYP PRN PRN Reason: K+ < 3.5 Potassium/Phosphorus/Sodium (Neutra Phos) 2 packet PO DAILY PRN PRN Reason: PHOS <2.5 Pregabalin (Lyrica) 150 mg PO DAILY [facility] Senna/Docusate Sodium (Senna Plus Tablet) 1 tab PO HS [facility] Sodium Chloride (Saline Flush) 10 ml IV Q8 [facility] Last Admin: 01/09/21 05:43 Dose: 10 ml Documented by: A/P Narrative A/P Narrative: * COVID-19 pneumonia-clinic improving. Continue remdesivir/dexamethasone. Continue supplemental oxygen. Empiric antibiotic coverage for superinfections, continue thrombosis prophylaxis. * Acute hypoxic respiratory failure secondary to Covid pneumonia. On 4 L oxygen. Continue low-flow/pulmonary toilet and transition. Interval chest imaging 24 hours * Recent E. coli bacteremia secondary to prostatitis continue coverage on Rocephin. * History neuropathy continue Lyrica * Hyperlipidemia continue statin * History of hypertension , currently normotensive. Hold amlodipine and Coreg, restart Coreg at half dose in 24 hours * BPH continue home dose finasteride * Prophylaxis Heparin Plan * Continue low flow O2, remdesivir/dexamethasone/COVID-19 precautions * Interval imaging * Antibiotic coverage * Pre-existing medical condition management home meds * Continue directed therapies/nutrition support/early mobilization * Discharge planning Time Spent With Patient Time: Total time spent is greater than 50% in coordination of care (as documented) at patient's floor/unit and/or counseling patient: QUALITY VTE Deep Vein Thrombosis/Pulmonary Embolism Present on Admission: No
[2021-01-09] MEDS: cefTRIAXone 2 GM in DEXTROSE 5% IN WATER 50 ML IV SCH (14:10)
[2021-01-09] MEDS ORDERED: ATORVASTATIN 40 MG TABLET PO SCH (17:00)
[2021-01-09] MEDS ORDERED: LOSARTAN 50 MG TABLET PO SCH (17:00)
[2021-01-09] MEDS ORDERED: amLODIPine 5 MG TABLET PO SCH (17:00)
[2021-01-09] MEDS ORDERED: ASPIRIN 81 MG TAB.CHEW PO SCH (17:00)
[2021-01-09] MEDS: CARVEDILOL 12.5 MG TABLET PO SCH (17:24)
[2021-01-09] MEDS: REMDESIVIR 100 MG in 0.9 % SODIUM CHLORIDE 250 ML IV SCH (17:25)
[2021-01-09] MEDS ORDERED: CARVEDILOL 12.5 MG TABLET PO SCH (17:30)
[2021-01-09] MEDS: AZITHROMYCIN 500 MG in DEXTROSE 5% IN WATER 250 ML IV SCH (20:49)
[2021-01-09] MEDS ORDERED: NORTRIPTYLINE 10 MG CAPSULE PO SCH (21:00)
[2021-01-09] MEDS ORDERED: SENNOSIDES/DOCUSATE SODIUM 1 TAB TABLET PO SCH (21:00)
[2021-01-10] MEDS: 0.9 % SODIUM CHLORIDE 10 ML SYRINGE IV SCH ×3 (05:34→21:22)
[2021-01-10 06:49] LABS: Basophils # (Auto) 0.02 K/mcL (0.00-0.20); Basophils % (Auto) 0.2 % (0.0-2.0); Eosinophils # (Auto) 0 K/mcL (0.00-0.70); Eosinophils % (Auto) 0 % (0.0-7.0); Hematocrit 34.6 % (41.0-55.0); Hemoglobin 11.1 g/dL (13.5-16.5); Lymphocytes # (Auto) 0.99 K/mcL (1.50-4.80); Lymphocytes % (Auto) 7.8 % (15.0-49.0); Mean Cell Volume 92.8 fL (80.0-100.0); Mean Corpuscular HGB Conc 32.1 g/dL (31.0-36.0); Mean Platelet Volume 10.9 fL (7.4-10.4); Monocytes # (Auto) 0.78 K/mcL (0.10-0.90); Monocytes % (Auto) 6.1 % (1.0-12.0); Neutrophils % (Auto) 85.9 % (38.0-78.0); Platelet Count 180 K/mcL (140-440); RBC 3.73 M/mcL (4.50-5.90); Red Cell Distribution Width 11.9 % (11.5-14.5); WBC 12.8 K/mcL (4.5-11.0)
[2021-01-10 07:14] LABS: ALT/SGPT 20 U/L (<40); AST/SGOT 20 U/L (<40); Albumin/Globulin Ratio 1.3 (1.0-2.3); Alkaline Phosphatase 78 U/L (39-117); Bilirubin,Direct < 0.2 mg/dL (<0.3); Bilirubin,Total < 0.2 mg/dL (0.1-1.0); Blood Urea Nitrogen 24 mg/dL (8-23); Calcium 7.9 mg/dL (8.6-10.4); Carbon Dioxide 21 mmol/L (22-30); Chloride 109 mmol/L (96-108); Globulin 2.3 gm/dL (2.2-3.7); Glomerular Filtration Rate 82; Glucose 136 mg/dL (70-105); Lactate Dehydrogenase 174 U/L (135-225); Phosphorous 2.4 mg/dL (2.5-4.5); Triglycerides 38 mg/dL (<150)
[2021-01-10] MEDS ORDERED: PANTOPRAZOLE 40 MG TABLET PO SCH (07:30)
--- NOTE | 2021-01-10 07:31 | XRay Report ---
INDICATION: Interval Change TECHNIQUE: AP portable chest x-ray COMPARISON: Previous chest x-rays dated 01/08/2021, 12/13/2020 FINDINGS: Lungs:Mild interstitial infiltrates, right worse than left. Findings are somewhat improved since previous examination although not resolved. Heart, vascular:No significant cardiomegaly. Pulmonary vascularity is normal. No pulmonary edema or pulmonary congestion Mediastinum, joie:No mediastinal widening. No hilar mass Pleura:No pleural fluid. No pleural-based mass or calcification Skeletal:Negative. IMPRESSION: 1. Mild bilateral interstitial infiltrates consistent with pneumonia. Covid pneumonia is likely 2. Interval improvement since 01/08/2021 Interpreted and Authenticated by: Jb Rothman 01/10/21
[2021-01-10] MEDS ORDERED: FINASTERIDE 5 MG TABLET PO SCH (09:00)
[2021-01-10] MEDS ORDERED: MULTIVITAMIN PO SCH (09:00)
[2021-01-10] MEDS ORDERED: PREGABALIN 150 MG CAPSULE PO SCH (09:00)
[2021-01-10] MEDS: MULTIVIT,THER IRON,CA,FA & MIN 1 TABLET PO SCH (09:13)
[2021-01-10] MEDS: DOCUSATE SODIUM 100 MG CAPSULE PO SCH ×2 (09:13→21:22)
[2021-01-10] MEDS: CARVEDILOL 12.5 MG TABLET PO SCH ×2 (09:13→16:46)
[2021-01-10] MEDS: DEXAMETHASONE 4 MG TABLET PO SCH (09:13)
[2021-01-10] MEDS: HEPARIN 5,000 UNIT/ML VIAL SQ SCH ×2 (09:14→21:23)
[2021-01-10] MEDS: cefTRIAXone 2 GM in DEXTROSE 5% IN WATER 50 ML IV SCH (09:14)
[2021-01-10] MEDS ORDERED: FLU VACC QS2020-21(6MOS UP)/PF 60 MCG/0.5 ML SYRINGE IM ONE (10:00)
--- NOTE | 2021-01-10 11:15 | Internal Med Progress Note ---
SUBJECTIVE Subjective Patient information: Note initiated : 01/10/21 at 11:12 am Service Date, if different from initiated Date: [] Patient: Ricardo Romano a 85 y/o M admitted on 01/08/21 for fever, SOB, hypoxia at home. Chief Complaint: [] Interval history: History of present illness: Mr. Romano is a 85 year old M who was recently hospitalized with E. coli bacteremia from prostatitis and was discharged on the 14 December and has been continuing ciprofloxacin who presents to the ER with worsening shortness of breath over the last few days. 3 days ago his was diagnosed with Covid and he was asked by state health authorities for Covid which turned positive. He also has associated fever, weakness, malaise, fatigue. He presented to the ER for further evaluation. Initial work-up was consistent with bilateral pneumonia. Patient was started on remdesivir/dexamethasone/antibiotic coverage and subsequently hospital service was consulted. At the time of my evaluation patient is alert but anxious. Is currently on 4 L oxygen. He complains of persistent cough minimally productive but denies chest pain. He endorses to arthralgia myalgia but denies joint swelling, rash, headache, photophobia. 01/09-patient clinically improving. Currently on full dose oxygen. However improved shortness of breath. Continue remdesivir/dexamethasone/antibiotic coverage. Overnight hypotensives around 90s requiring crystalloid boluses. H old antihypertensives. Consistent with previous hospitalization wherein antihypertensive doses were reduced. Discontinue amlodipine, lower Coreg to half and resume with holding parameters. -01/10- patient feels a lot better. Clinically improved. Breathing a lot better. No evidence of hypoxia. No telemetry events. Transition to medical floor. Continuing antibiotic coverage. On remdesivir day 3. No additional concerns per nursing staff. Tolerating physical therapy. Tolerating diet. Constitutional Vitals: Vital Signs Temp Pulse Resp BP Pulse Ox 97.6 F 74 23 H 109/74 95 01/10/21 08:01 01/10/21 10:08 01/10/21 10:08 01/10/21 10:08 01/10/21 10:08 Period Temp Pulse Resp BP Sys/Hoffman Pulse Ox Last 24 Hr 96.7 F-98.2 F 62-79 13-26 97-124/62-100 91-100 Intake and Output 01/09/21 01/10/21 01/10/21 21:59 05:59 13:59 Intake Total 1460 250 240 Output Total 150 500 300 Balance 1310 -250 -60 Weight 82.582 kg Alert oriented Nonlabored breathing No telemetry events. No anxiety Intake & Output: Intake & Output 01/09/21 01/10/21 01/10/21 21:59 05:59 13:59 Intake Total 1460 250 240 Output Total 150 500 300 Balance 1310 -250 -60 Weight 82.582 kg Intake: IV 300 250 Zithromax 500 mg In Dextrose 5% 250 in Water 250 ml @ 250 mls/hr IV Q24H ANA Rx#:[id number] Veklury 100 mg In Sodium 250 Chloride 0.9% 250 ml @ 500 mls/ hr IV Q24H ANA Rx#:[id number] Rocephin 2 gm In Dextrose 5% in 50 Water 50 ml @ 100 mls/hr IV Q24H ANA Rx#:[id number] Oral 1160 240 Output: Void Amount 150 500 300 Other: Meal Dinner Breakfast Percent of Meal Consumed 100% 100% Feeding Ability Independent Independent Urine Appearance Clear Clear Clear Urine Color Dark Yellow Bright Yellow Pale Urine Odor Normal Normal Stool Size Small Stool Color Brown Stool Consistency Formed OBJ DATA Labs CBC & Chem 7: 01/10/21 04:40 01/10/21 04:40 Labs: Abnormal Lab Results 01/10/21 01/10/21 01/09/21 04:40 04:40 04:54 WBC 12.8 H 4.3 L RBC 3.73 L 3.82 L Hgb 11.1 L 11.3 L Hct 34.6 L 35.3 L MPV 10.9 H 10.8 H Neut % (Auto) 85.9 H 83.3 H Lymph % (Auto) 7.8 L 13.2 L Lymph # (Auto) 0.99 L 0.57 L Absolute Neutrophils 10.97 H Chloride 109 H Carbon Dioxide 21 L BUN 24 H Glucose 136 H Calcium 7.9 L Phosphorus 2.4 L C-Reactive Protein Total Protein 5.3 L Albumin 3.0 L Urine Protein Urine RBC Urine WBC Urine Bacteria Hyaline Casts Urine Mucus 01/09/21 01/08/21 01/08/21 04:53 20:40 20:33 WBC RBC Hgb Hct MPV Neut % (Auto) Lymph % (Auto) Lymph # (Auto) Absolute Neutrophils Chloride Carbon Dioxide 20 L BUN Glucose 153 H 120 H Calcium 7.6 L Phosphorus C-Reactive Protein 3.50 H Total Protein 5.7 L Albumin 3.0 L Urine Protein 30 A Urine RBC 12 H Urine WBC 9 H Urine Bacteria Few A Hyaline Casts 8 H Urine Mucus Many A 01/08/21 20:33 WBC RBC 3.88 L Hgb 11.9 L Hct 35.5 L MPV 10.7 H Neut % (Auto) Lymph % (Auto) Lymph # (Auto) 1.03 L Absolute Neutrophils Chloride Carbon Dioxide BUN Glucose Calcium Phosphorus C-Reactive Protein Total Protein Albumin Urine Protein Urine RBC Urine WBC Urine Bacteria Hyaline Casts Urine Mucus Meds: Medications Acetaminophen (Tylenol) 650 mg PO Q4-6HP PRN; Protocol PRN Reason: Per Pain Protocol/Fever > 101 Albuterol Sulfate (Ventolin) 1 - 2 puff INH Q4HP PRN PRN Reason: Shortness Of Breath Aspirin (Aspirin) 81 mg PO DAILY@1700 [facility] Last Admin: 01/09/21 17:25 Dose: 81 mg Documented by: Atorvastatin Calcium (Lipitor) 80 mg PO DAILY@1700 [facility] Last Admin: 01/09/21 17:24 Dose: 80 mg Documented by: Bisacodyl (Dulcolax) 10 mg IN Q2-3DAYS PRN PRN Reason: Constipation [facility] Last Admin: 01/10/21 09:13 Dose: 12.5 mg Documented by: Dexamethasone (Decadron) 6 mg PO DAILY [facility] Last Admin: 01/10/21 09:13 Dose: 6 mg Documented by: Docusate Sodium (Colace) 100 mg PO BID [facility] Last Admin: 01/10/21 09:13 Dose: 100 mg Documented by: Finasteride (Proscar) 5 mg PO QDAY [facility] Last Admin: 01/10/21 09:13 Dose: 5 mg Documented by: Heparin Sodium (Porcine) (Heparin) 5,000 unit SQ Q12 [facility] Last Admin: 01/10/21 09:14 Dose: 5,000 unit Documented by: Azithromycin 500 mg/ Dextrose 250 mls @ 250 mls/hr IV Q24H [facility]; Protocol Stop: 01/11/21 00:27 Last Infusion: 01/09/21 22:00 Dose: Infused Documented by: Potassium Chloride 40 meq/ (Dextrose) 520 mls @ 130 mls/hr IV UD PRN PRN Reason: K+ = or < 3.5 Acetaminophen (Ofirmev) 650 mg in 65 mls @ 130 mls/hr IV Q6HP PRN; Protocol PRN Reason: Per Pain Protocol/Fever > 101 Magnesium Sulfate (Magnesium Sulfate) 2 gm in 50 mls @ 50 mls/hr IV UD PRN PRN Reason: MG = or < 1.7 Last Admin: 01/10/21 09:14 Dose: 50 mls/hr Documented by: Ceftriaxone Sodium 2 gm/ (Dextrose) 50 mls @ 100 mls/hr IV Q24H [facility]; Protocol Last Admin: 01/10/21 09:14 Dose: 100 mls/hr Documented by: REMDESIVIR 100 mg/ Sodium (Chloride) 250 mls @ 500 mls/hr IV Q24H [facility] Stop: 01/12/21 18:29 Last Infusion: 01/09/21 18:00 Dose: Infused Documented by: Iron Carb/Multivit/Cooper/Folic Acid (Multivitamin W/Minerals) 1 tab PO DAILY [facility] Last Admin: 01/10/21 09:13 Dose: 1 tab Documented by: Melatonin (Melatonin 3mg Tablet) 3 mg PO HSP PRN PRN Reason: Insomnia Naproxen (Naprosyn) 250 mg PO DAILYP PRN PRN Reason: Pain, Mild Nitroglycerin (Nitrostat) 0.4 mg SL Q5M PRN PRN Reason: Chest Pain Nortriptyline HCl (Pamelor) 10 mg PO QHS [facility] Last Admin: 01/09/21 20:48 Dose: 10 mg Documented by: Ondansetron HCl (Zofran Odt) 4 mg SL Q4-6HP PRN; Protocol PRN Reason: Nausea And Vomiting Ondansetron HCl (Zofran) 4 mg IV Q4-6HP PRN; Protocol PRN Reason: Nausea And Vomiting Pantoprazole Sodium (Protonix) 40 mg PO QAMAC [facility] Last Admin: 01/10/21 07:31 Dose: 40 mg Documented by: Polyethylene Glycol (Miralax) 17 gm PO DAILYP PRN PRN Reason: Constipation Potassium Chloride (Klor-Con) 40 meq PO DAILYP PRN PRN Reason: K+ < 3.5 Last Admin: 01/10/21 09:14 Dose: 40 meq Documented by: Potassium/Phosphorus/Sodium (Neutra Phos) 2 packet PO DAILY PRN PRN Reason: PHOS <2.5 Last Admin: 01/10/21 09:14 Dose: 2 packet Documented by: Pregabalin (Lyrica) 150 mg PO DAILY [facility] Last Admin: 01/10/21 09:13 Dose: 150 mg Documented by: Senna/Docusate Sodium (Senna Plus Tablet) 1 tab PO HS [facility] Last Admin: 01/09/21 19:42 Dose: Not Given Documented by: Sodium Chloride (Saline Flush) 10 ml IV Q8 [facility] Last Admin: 01/10/21 05:34 Dose: 10 ml Documented by: A/P Narrative A/P Narrative: * COVID-19 pneumonia-clinic improving however persistent pneumonia on interval imaging. On remdesivir/dexamethasone. Continue antibiotic coverage for superinfections, continue thrombosis prophylaxis. * Acute hypoxic respiratory failure secondary to Covid pneumonia. Rapid cl inical improvement noted. Now on room air down from 4 L oxygen. * Recent E. coli bacteremia secondary to prostatitis continue Rocephin. * History neuropathy stable on Lyrica * Hyperlipidemia continue statin * History of hypertension , currently normotensive. Held amlodipine, continue Coreg at half dose * BPH continue home dose finasteride * Prophylaxis Heparin Plan * Continue remdesivir/dexamethasone/COVID-19 precautions * Pre-existing medical condition management home meds * Transition to medical floor * PT OT nutrition support * Discharge planning Time Spent With Patient Time: Total time spent is greater than 50% in coordination of care (as documented) at patient's floor/unit and/or counseling patient: QUALITY VTE Deep Vein Thrombosis/Pulmonary Embolism Present on Admission: No
[2021-01-10] MEDS: REMDESIVIR 100 MG in 0.9 % SODIUM CHLORIDE 250 ML IV SCH (13:38)
[2021-01-10] MEDS ORDERED: ALBUTEROL SULFATE 200 PUFF INHALER INH PRN (14:38)
[2021-01-10] MEDS ORDERED: POTASSIUM CHLORIDE 20 MEQ PACKET PO PRN (14:38)
[2021-01-10] MEDS ORDERED: MAGNESIUM SULFATE 2 GM/50 ML BAG IV PRN (14:38)
[2021-01-10] MEDS ORDERED: NEUTRA PHOS 1 PACKET PO PRN (14:38)
[2021-01-10] MEDS ORDERED: NAPROXEN 250 MG TABLET PO PRN (14:38)
[2021-01-10] MEDS ORDERED: ACETAMINOPHEN 325 MG TABLET PO PRN (14:38)
[2021-01-10] MEDS ORDERED: POTASSIUM CHLORIDE 40 MEQ in DEXTROSE 5% IN WATER 500 ML IV PRN (14:38)
[2021-01-10] MEDS ORDERED: ACETAMINOPHEN 650 MG/65 ML BAG IV PRN (14:38)
[2021-01-10] MEDS ORDERED: ONDANSETRON 4 MG ODT TABLET SL PRN (14:38)
[2021-01-10] MEDS ORDERED: BISACODYL 10 MG SUPP.RECT PR PRN (14:38)
[2021-01-10] MEDS ORDERED: ONDANSETRON 4 MG/2 ML VIAL IV PRN (14:38)
[2021-01-10] MEDS ORDERED: NITROGLYCERIN 0.4 MG TAB.SUBL SL PRN (14:38)
[2021-01-10] MEDS ORDERED: POLYETHYLENE GLYCOL 3350 17 GM PACKET PO PRN (14:38)
[2021-01-10] MEDS ORDERED: AZITHROMYCIN 500 MG in DEXTROSE 5% IN WATER 250 ML IV ONE (15:00)
[2021-01-10] MEDS ORDERED: ATORVASTATIN 40 MG TABLET PO SCH (17:00)
[2021-01-10] MEDS ORDERED: ASPIRIN 81 MG TAB.CHEW PO SCH (17:00)
[2021-01-10] MEDS ORDERED: MELATONIN 3 MG TABLET PO PRN (21:00)
[2021-01-10] MEDS ORDERED: SENNOSIDES/DOCUSATE SODIUM 1 TAB TABLET PO SCH (21:00)
[2021-01-10] MEDS ORDERED: NORTRIPTYLINE 10 MG CAPSULE PO SCH (21:00)
[2021-01-11] MEDS: 0.9 % SODIUM CHLORIDE 10 ML SYRINGE IV SCH (04:51)
[2021-01-11 06:34] LABS: Basophils # (Auto) 0.02 K/mcL (0.00-0.20); Basophils % (Auto) 0.1 % (0.0-2.0); Eosinophils # (Auto) 0 K/mcL (0.00-0.70); Eosinophils % (Auto) 0 % (0.0-7.0); Hematocrit 38.6 % (41.0-55.0); Hemoglobin 12.3 g/dL (13.5-16.5); Lymphocytes # (Auto) 0.92 K/mcL (1.50-4.80); Lymphocytes % (Auto) 5.6 % (15.0-49.0); Mean Cell Volume 94.1 fL (80.0-100.0); Mean Corpuscular HGB Conc 31.9 g/dL (31.0-36.0); Mean Platelet Volume 10.7 fL (7.4-10.4); Monocytes # (Auto) 0.67 K/mcL (0.10-0.90); Monocytes % (Auto) 4.1 % (1.0-12.0); Neutrophils % (Auto) 90.2 % (38.0-78.0); Platelet Count 226 K/mcL (140-440); WBC 16.3 K/mcL (4.5-11.0)
[2021-01-11] MEDS: CARVEDILOL 12.5 MG TABLET PO SCH (07:10)
[2021-01-11 07:13] LABS: ALT/SGPT 34 U/L (<40); AST/SGOT 30 U/L (<40); Albumin 3.1 gm/dL (3.2-5.2); Albumin/Globulin Ratio 1.1 (1.0-2.3); Alkaline Phosphatase 85 U/L (39-117); Bilirubin,Direct < 0.2 mg/dL (<0.3); Bilirubin,Total 0.2 mg/dL (0.1-1.0); Blood Urea Nitrogen 27 mg/dL (8-23); Calcium 8.1 mg/dL (8.6-10.4); Carbon Dioxide 21 mmol/L (22-30); Chloride 110 mmol/L (96-108); Globulin 2.7 gm/dL (2.2-3.7); Glomerular Filtration Rate 82; Glucose 129 mg/dL (70-105); Lactate Dehydrogenase 250 U/L (135-225); Phosphorous 2.7 mg/dL (2.5-4.5); Triglycerides 60 mg/dL (<150); Uric Acid 3.4 mg/dL (2.5-8.0)
[2021-01-11] MEDS ORDERED: PANTOPRAZOLE 40 MG TABLET PO SCH (07:30)
[2021-01-11] MEDS: HEPARIN 5,000 UNIT/ML VIAL SQ SCH (08:36)
[2021-01-11] MEDS: DOCUSATE SODIUM 100 MG CAPSULE PO SCH (08:36)
[2021-01-11] MEDS ORDERED: cefTRIAXone 2 GM in DEXTROSE 5% IN WATER 50 ML IV SCH (09:00)
[2021-01-11] MEDS ORDERED: DEXAMETHASONE 4 MG TABLET PO SCH (09:00)
[2021-01-11] MEDS ORDERED: PREGABALIN 150 MG CAPSULE PO SCH (09:00)
[2021-01-11] MEDS ORDERED: MULTIVIT,THER IRON,CA,FA & MIN 1 TABLET PO SCH (09:00)
[2021-01-11] MEDS ORDERED: FINASTERIDE 5 MG TABLET PO SCH (09:00)
--- NOTE | 2021-01-11 11:09 | Discharge Summary ---
Discharge Provider Provider Patient information: Note initiated : 01/11/21 at 11:06 am Service Date, if different from initiated Date: [] Patient: Ricardo Romano a 85 y/o M admitted on 01/08/21 for fever, SOB, hypoxia at home. Discharge diagnosis * COVID-19 pneumonia-clinically resolved. Managed on remdesivir/dexamethasone. Continue additional 2 doses of dexamethasone/oral Omnicef for 4 days * Acute hypoxic respiratory failure secondary to Covid pneumonia. Clinically resolved. * Recent E. coli bacteremia secondary to prostatitis. Continue ciprofloxacin as prescribed during previous hospitalization until completion * History neuropathy stable on Lyrica * Hyperlipidemia continue statin * History of hypertension , patient has remained normotensive despite being off losartan/amlodipine/hydralazine. He is currently on half dose Coreg 12.5 twice daily. Recommend holding all antihypertensives except for Coreg at half dose until follow-up with primary care physician and further evaluation * BPH continue home dose finasteride Brief hospital course nterval history: History of present illness: Mr. Romano is a 85 year old M who was recently hospitalized with E. coli bacteremia from prostatitis and was discharged on the 14 December and has been continuing ciprofloxacin who presents to the ER with worsening shortness of breath over the last few days. 3 days ago his was diagnosed with Covid and he was asked by state health authorities for Covid which turned positive. He also has associated fever, weakness, malaise, fatigue. He presented to the ER for further evaluation. Initial work-up was consistent with bilateral pneumonia. Patient was started on remdesivir/dexamethasone/antibiotic coverage and subsequently hospital service was consulted. At the time of my evaluation patient is alert but anxious. Is currently on 4 L oxygen. He complains of persistent cough minimally productive but denies chest pain. He endorses to arthralgia myalgia but denies joint swelling, rash, headache, photophobia. 01/09-patient clinically improving. Currently on full dose oxygen. However improved shortness of breath. Continue remdesivir/dexamethasone/antibiotic coverage. Overnight hypotensives around 90s requiring crystalloid boluses. Hold antihypertensives. Consistent with previous hospitalization wherein antihypertensive doses were reduced. Discontinue amlodipine, lower Coreg to half and resume with holding parameters. -01/10- patient feels a lot better. Clinically improved. Breathing a lot better. No evidence of hypoxia. No telemetry events. Transition to medical floor. Continuing antibiotic coverage. On remdes day 3. No additional concerns per nursing staff. Tolerating physical therapy. Tolerating diet. 01/11-patient clinically improved. No overnight events. No concerns per staff. On room air. Tolerating diet. With minimal assistance. Feels at baseline. Requesting discharge. Date of admission: 01/08/21 23:21 Discharge date: 01/11/21 Primary care physician: Ricardo Ocoha Consults: 01/08/21 Consult to Physician [CONS] Stat Comment: Consulting Provider: Jorge L Dewitt Reason For Exam: Physician to Consult Discharge Meds Discharge Medications Home Medications multivitamin 1 tab-cap PO QDAY 11/02/15 [History Confirmed 01/09/21 Last Taken 01/08/21 07:00] naproxen sodium 220 mg PO DAILYP PRN 03/05/16 [History Confirmed 01/09/21 Last Taken 12/30/20 12:00] nortriptyline 10 mg capsule 10 mg PO QHS #90 cap 01/18/18 [Rx Confirmed 01/09/21 Last Taken 01/07/21 20:00] nitroglycerin 0.4 mg sublingual tablet 0.4 mg SUBLINGUAL Q5-15MIN PRN #30 tab 01/27/18 [Rx Confirmed 01/09/21 Last Taken 10/30/20 12:00] pantoprazole 40 mg tablet,delayed release 40 mg PO QAM #90 tab 01/27/18 [Rx Confirmed 01/09/21 Last Taken 01/08/21 07:00] aspirin 81 mg PO DAILY@1700 12/11/20 [History Confirmed 01/09/21 Last Taken 01/08/21 17:00] atorvastatin 80 mg PO DAILY@1700 12/11/20 [History Confirmed 01/09/21 Last Taken 01/08/21 17:00] finasteride [Proscar] 5 mg PO QDAY 12/11/20 [History Confirmed 01/09/21 Last Taken 01/08/21 07:00] pregabalin [Lyrica] 150 mg PO DAILY 12/11/20 [History Confirmed 01/09/21 Last Taken 01/08/21 07:00] acetaminophen [Tylenol] 650 mg PO Q6HP PRN 01/09/21 [History Confirmed 01/09/21 Last Taken 01/07/21 12:00] ciprofloxacin HCl 500 mg PO BID@1700 01/09/21 [History Confirmed 01/09/21 Last Taken 01/08/21 17:00] carvedilol 12.5 mg PO BIDCC #30 tab 01/11/21 [Rx Last Taken Unknown] cefdinir 300 mg PO BID #8 cap 01/11/21 [Rx Last Taken Unknown] dexamethasone 6 mg PO DAILY #3 tab 01/11/21 [Rx Last Taken Unknown] COURSE Hospital Course Hospital course: . Discharge diagnosis: COVID-19 pneumonia Time Spent with Patient Time attestation: Total time spent providing and/or coordinating discharge se rvices: EXAM Constitutional Vitals: Temp Pulse Resp BP Pulse Ox 98.8 F 65 16 133/77 97 01/11/21 06:34 01/11/21 06:34 01/11/21 07:16 01/11/21 06:34 01/11/21 06:34 Discharge Data Data Completed and Pending Labs on day of discharge: Labs from last 24 hours 01/11/21 01/11/21 05:28 05:28 WBC 16.3 H RBC 4.10 L Hgb 12.3 L Hct 38.6 L MCV 94.1 MCH 30.0 MCHC 31.9 RDW 12.0 Plt Count 226 MPV 10.7 H Neut % (Auto) 90.2 H Lymph % (Auto) 5.6 L [place] % (Auto) 4.1 Eos % (Auto) 0 Baso % (Auto) 0.1 Lymph # (Auto) 0.92 L [place] # (Auto) 0.67 Eos # (Auto) 0 Baso # (Auto) 0.02 Absolute Neutrophils 14.71 H Sodium 142 Potassium 3.5 Chloride 110 H Carbon Dioxide 21 L Anion Gap 11.0 BUN 27 H Creatinine 0.8 GFR Calculation 82 Glucose 129 H Uric Acid 3.4 Calcium 8.1 L Phosphorus 2.7 Magnesium 2.2 Total Bilirubin 0.2 Direct Bilirubin < 0.2 GGT 16 AST 30 ALT 34 Alkaline Phosphatase 85 Lactate Dehydrogenase 250 H Total Protein 5.8 L Albumin 3.1 L Globulin 2.7 Albumin/Globulin Ratio 1.1 Triglycerides 60 Preliminary micro results at discharge 01/08/21 20:40 Urine Culture - Preliminary Urine - Clean Void Mid-Stream Discharge Plan Patient/Caregiver Discharge Instructions Activity: increase activity as tolerated Diet: Regular Diet Activity Restrictions/Additional Instructions: Continue oral Omnicef for 4 days for pneumonia treatment Continue dexamethasone for additional 3 days Discontinue amlodipine, hydralazine, valsartan as patient remained normotensive during this and prior hospitalization Also dose of Coreg to be reduced to half currently prescribed at 12.5 twice daily Continue ciprofloxacin for chronic prostatitis and bacteremia to complete entire duration as advised during prior hospitalization Prescriptions: New carvedilol 12.5 mg Tablet 12.5 mg PO BIDCC Qty: 30 RF: 0 cefdinir 300 MG capsule 300 mg PO BID Qty: 8 RF: 0 dexamethasone 4 mg Tablet 6 mg PO DAILY Qty: 3 RF: 0 Continued nortriptyline 10 mg capsule 10 mg PO QHS Qty: 90 RF: 3 multivitamin capsule 1 tab-cap PO QDAY RF: 0 pantoprazole 40 mg tablet,delayed release (DR/EC) 40 mg PO QAM Qty: 90 RF: 3 nitroglycerin 0.4 mg tablet, sublingual 0.4 mg SUBLINGUAL Q5-15MIN PRN (Reason: Chest Pain) Qty: 30 RF: 12 naproxen sodium 220 MG tablet 220 mg PO DAILYP PRN (Reason: Pain, Mild) RF: 0 atorvastatin 80 mg tablet 80 mg PO DAILY@1700 RF: 0 aspirin 81 mg tablet,delayed release (DR/EC) 81 mg PO DAILY@1700 RF: 0 finasteride [Proscar] 5 mg tablet 5 mg PO QDAY RF: 0 pregabalin [Lyrica] 150 mg Capsule 150 mg PO DAILY RF: 0 ciprofloxacin HCl 500 mg tablet 500 mg PO BID@1700 RF: 0 acetaminophen [Tylenol] 325 mg Tablet 650 mg PO Q6HP PRN (Reason: Pain) RF: 0 Discontinued carvedilol 25 mg Tablet 25 mg PO BID@1700 RF: 0 hydralazine 25 mg tablet 25 mg PO PRN PRN (Reason: Hypertension) RF: 0 amlodipine 5 mg tablet 10 mg PO DAILY@1700 RF: 0 valsartan 160 mg Tablet 160 mg PO DAILY@1700 RF: 0 Follow Up Plan Patient Disposition: Home, Self-Care Rehab Potential: Fair I certify that the patient requires SNF services: No Overall status at discharge: patient is progressing back to baseline Discharge Orders: Discharge Order (Routine); Ordered 01/11/21 Ordered By: Jorge L MCLEOD VTE Deep Vein Thrombosis/Pulmonary Embolism Present on Admission: No
[2021-01-11] MEDS ORDERED: REMDESIVIR 100 MG in 0.9 % SODIUM CHLORIDE 250 ML IV SCH (14:00)
== END 2021-01-11 13:25 | disposition home or self-care (01) | DRG 177 ==
LOC: ED 19:54 → ICU 23:21 → MEDSUR 01-10 18:00
PROVIDERS: ADMIT Internal Medicine; ATTEND Internal Medicine